=== PATIENT | female | born 1945 ===

== ENCOUNTER 2017-05-31 14:04 | Observation (INO) | payer OTHER ==
[2017-05-31 14:04] VITALS: BMI 34.7
[~2017-05-31 14:04] MED LIST: Perflutren Lipid Microsphere 1.5 ML SUS IV ONE
--- NOTE | 2017-05-31 14:25 | C.PDOC ---
History Of Present Illness 72 yr old female sent to ER by the clinic, for evaluation of chest pain which started today. Patient has history if CAD, HTN, possibly associated with exertion. Otherwise patient denies fever, chills, palpitations, nausea,vomiting , weakness or numbness. REFERRED FROM CLINIC. CP SINCE TODAY. HO CAD HTN, ?ASSOC W EXERTION EXAM NEG Time Seen by Provider: 05/31/17 14:22 Chief Complaint (Nursing): Chest Pain History Per: Patient History/Exam Limitations: no limitations Onset/Duration Of Symptoms: Sudden Onset Current Symptoms Are (Timing): Still Present Past Medical History Reviewed: Historical Data, Nursing Documentation, Vital Signs Vital Signs: Last Vital Signs Temp 97.5 F L 05/31/17 14:24 Pulse 63 05/31/17 14:50 Resp 21 05/31/17 14:50 BP 138/71 05/31/17 14:50 Pulse Ox 100 05/31/17 14:50 - Medical History PMH: Cardia Arrhythmia, CHF, Colonic Polyps, Deep Vein Thrombosis (RLE IN 2014) , HTN, Hypercholesterolemia, Peripheral Edema, Pulmonary Embolism - [place] Procedures PLICATION OF VENA CAVA (05/05/15) Family History: States: No Known Family Hx - Social History Hx Alcohol Use: No Hx Substance Use: No - Immunization History Hx Tetanus Toxoid Vaccination: No Hx Influenza Vaccination: No Hx Pneumococcal Vaccination: No Review Of Systems Except As Marked, All Systems Reviewed And Found Negative. Constitutional: Negative for: Fever, Chills Cardiovascular: Positive for: Chest Pain. Negative for: Palpitations Gastrointestinal: Negative for: Nausea, Vomiting Neurological: Negative for: Weakness, Numbness Physical Exam - Physical Exam Appears: Non-toxic, No Acute Distress Skin: Warm, Dry, No Rash Head: Atraumatic, Normacephalic Oral Mucosa: Moist Chest: Symmetrical, No Tenderness Cardiovascular: Rhythm Regular, No Murmur Respiratory: Normal Breath Sounds, No Rales, No Rhonchi, No Stridor, No Wheezing Extremity: Normal ROM, No Swelling Neurological/Psych: Oriented x3, Normal Speech, Normal Motor ED Course And Treatment - Laboratory Results Result Diagrams: 05/31/17 15:00 05/31/17 15:00 ECG: Interpreted By Me ECG Rhythm: Sinus Bradycardia ECG Interpretation: No Changes From Prior (2015) Rate From EC (BPM) Pulse Ox Interpretation: Normal - Other Rad CXR X-Ray: Viewed By Me, Read By Radiologist Interpretation: PROCEDURE: CHEST RADIOGRAPH, 1 VIEW. HISTORY: chest pain. COMPARISON: 06/17/2015. FINDINGS: LUNGS: Current lung volumes increased compared to before. No interval consolidation. PLEURA: The prior bibasilar pleural effusions have cleared. No pneumothorax. CARDIOVASCULAR: The pulmonary vasculature appears chronically mildly congested. Cardiomegaly renoted. 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 VISUALIZED UPPER ABDOMEN: Normal. OTHER FINDINGS: None. IMPRESSION: Interval clearance of the bibasilar pleural effusions. No interval pathology suggested - Physician Consult Information Time Consulting Physician Contacted: 15:51 Physician Contacted: Beau Concepcion Medical Decision Making Medical Decision Making: PLAN: * CXR * EKG * Troponin * CBC * CMP * Aspirin PO * Tylenol PO * Nitroglycerin TOP Disposition Counseled Patient/Family Regarding: Studies Performed, Diagnosis - Disposition Disposition: HOSPITALIZED Disposition Time: 15:51 Condition: STABLE Forms: [facility] (Nicaraguan) - POA Present On Arrival: Poor Glycemic Control - Clinical Impression Clinical Impression: Chest pain - Scribe Statement The provider has reviewed the documentation as recorded by the Scribe Karolina Arreaga Provider Attestation: All medical record entries made by the Scribe were at my direction and personally dictated by me. I have reviewed the chart and agree that the record accurately reflects my personal performance of the history, physical exam, medical decision making, and the department course for this patient. I have also personally directed, reviewed, and agree with the discharge instructions and disposition. Decision To Admit - Pt Status Changed To: Hospital Disposition Of: Observation - . Bed Request Type: Telemetry Admitting Physician: Beau Concepcion Patient Diagnosis: Chest pain
[2017-05-31] MEDS ORDERED: Nitroglycerin 2% Ointment Foilpak UD TOP STA (14:28)
[2017-05-31] MEDS ORDERED: Aspirin 325 mg EC Tablets PO STA (14:28)
--- NOTE | 2017-05-31 14:46 | RAD ---
PROCEDURE: CHEST RADIOGRAPH, 1 VIEW HISTORY: chest pain COMPARISON: 06/17/2015 FINDINGS: LUNGS: Current lung volumes increased compared to before No interval consolidation PLEURA: The prior bibasilar pleural effusions have cleared. No pneumothorax CARDIOVASCULAR: The pulmonary vasculature appears chronically mildly congested. 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 OTHER FINDINGS: None. IMPRESSION: Interval clearance of the bibasilar pleural effusions No interval pathology suggested
[2017-05-31] MEDS ORDERED: Aspirin 325 mg EC Tablets PO ONE (14:47)
[2017-05-31] MEDS ORDERED: Nitroglycerin 2% Ointment Foilpak UD TOP ONE (14:47)
[2017-05-31 15:05] LABS: BASO # 0.1 K/uL (0.0-0.2); BASO % 0.8 % (0.0-2.0); EOS # 0.2 K/uL (0.0-0.7); EOS % 2.5 % (0.0-4.0); HEMATOCRIT 36.6 % (34.0-47.0); LYMPH # 2.6 K/uL (1.0-4.3); LYMPH % 41.3 % (20.0-40.0); MEAN CORPUSCULAR HEMOGLOBIN 27.4 pg (27.0-31.0); MEAN CORPUSCULAR HGB CONC 32.6 g/dL (33.0-37.0); MEAN PLATELET VOLUME 8.2 fL (7.2-11.7); MONO # 0.5 K/uL (0.0-0.8); MONO % 7.5 % (0.0-10.0); NRBC % 0.2 % (0.0-2.0); RED CELL DISTRIBUTION WIDTH 15.3 % (11.5-14.5); WHITE BLOOD COUNT 6.3 K/uL (4.8-10.8)
[2017-05-31 15:12] LABS: POTASSIUM 4.6 mmol/L (3.6-5.2)
[2017-05-31 15:14] LABS: BILIRUBIN,TOTAL 0.7 mg/dL (0.2-1.3)
[2017-05-31 15:15] LABS: ALB/GLOB RATIO 1.3 (1.0-2.1); CALCIUM 9.1 mg/dl (8.6-10.4); TOTAL PROTEIN 7.6 g/dL (6.3-8.3)
[2017-05-31 15:37] LABS: TROPONIN I 0.014 ng/mL (0.00-0.120)
--- NOTE | 2017-05-31 16:06 | CP.PCM.HP ---
History of Present Illness - History of Present Illness History of Present Illness: Internal Medicine History and Physical for Dr. Concepcion 72F presents with chest pain. Patient states the chest pain began at 9am in the morning. Patient states the pain lasted for 15 minutes. Patient has had chest pain like this in the past. Patient denies headaches, dizziness, difficulties urinating, problems with bowel movements, numbness, paresthesias. Patient admits to shortness of breath, leg edema. Patient went to clinic and was sent to the emergency room.. Patient has a past medical history of diabetes, DVT, PE (2014), IVC filter placement in 2014, HTN, colonic polyps 2015, CHF with EF 15-20%, Cardiomegaly, Diabetes. Patient states she was taken off of metformin recently because of worsening kidney function. Patient was unable to urinate. Kidney function has returned back to baseline. PMH: diabetes, DVT, PE (2014), IVC filter placement in 2014,HTN, colonic polyps 2015, CHF with EF 15-20%, Cardiomegaly PSH: IVC filter 2014 Social history: patient denies smoking, drinking alcohol and illicit drugs. FHx: brother of [place] and HTN, family history of diabetes PMD: patient goes to clinic CXR: bibasilar pleural effusions Present on Admission - Present on Admission Any Indicators Present on Admission: Yes History of DVT/PE: Yes History of Uncontrolled Diabetes: Yes Urinary Catheter: No Decubitus Ulcer Present: No Past Patient History - Infectious Disease Hx of Infectious Diseases: None - Past Medical History & Family History Past Medical History?: Yes - Past Social History Smoking Status: Never Smoked - CARDIAC Hx Cardia Arrhythmia: Yes Hx Congestive Heart Failure: Yes Hx Hypercholesterolemia: Yes Hx Hypertension: Yes Hx Peripheral Edema: Yes - PULMONARY Hx Pulmonary Embolism: Yes - NEUROLOGICAL Hx Neurological Disorder: No - HEENT Hx HEENT Problems: No - RENAL Hx Chronic Kidney Disease: No - ENDOCRINE/METABOLIC Hx Endocrine Disorders: Yes Hx Diabetes Mellitus Type 2: Yes - HEMATOLOGICAL/ONCOLOGICAL Hx Blood Disorders: No - INTEGUMENTARY Hx Dermatological Problems: No - MUSCULOSKELETAL/RHEUMATOLOGICAL Hx Musculoskeletal Disorders: No - GASTROINTESTINAL Hx Gastrointestinal Disorders: Yes Hx Hemorrhoids: Yes - GENITOURINARY/GYNECOLOGICAL Hx Genitourinary Disorders: No - PSYCHIATRIC Hx Substance Use: No - SURGICAL HISTORY Hx Surgeries: Yes Other/Comment: THROAT POLYP, NECK SX - ANESTHESIA Hx Anesthesia: Yes Hx Anesthesia Reactions: No Hx Malignant Hyperthermia: No Meds Allergies/Adverse Reactions: Allergies Allergy/AdvReac Type Severity Reaction Status Date / Time No Known Allergies Allergy Verified 07/03/16 12:27 Physical Exam - Constitutional Appears: Non-toxic, No Acute Distress - Head Exam Head Exam: NORMAL INSPECTION - Eye Exam Eye Exam: EOMI, Normal appearance - ENT Exam ENT Exam: Mucous Membranes Moist - Respiratory Exam Respiratory Exam: NORMAL BREATHING PATTERN. absent: Accessory Muscle Use, Rales , Wheezes, Respiratory Distress - Cardiovascular Exam Cardiovascular Exam: Bradycardia, +S1, +S2. absent: Tachycardia - GI/Abdominal Exam GI & Abdominal Exam: Soft. absent: Firm, Guarding, Mass, Pulsatile Mass, Tenderness - Extremities Exam Extremities exam: Positive for: full ROM, pedal edema Additional comments: 1+ pedal edema - Neurological Exam Neurological exam: Alert, Oriented x3 - Psychiatric Exam Psychiatric exam: Normal Affect, Normal Mood - Skin Skin Exam: Dry, Intact, Normal Color, Warm Results - Vital Signs Recent Vital Signs: Last Vital Signs Temp 97.5 F L 05/31/17 14:24 Pulse 63 05/31/17 14:50 Resp 21 05/31/17 14:50 BP 138/71 05/31/17 14:50 Pulse Ox 100 05/31/17 14:50 - Labs Result Diagrams: 05/31/17 15:00 05/31/17 15:00 Labs: Laboratory Results - last 24 hr 05/31/17 05/31/17 15:00 15:00 WBC 6.3 RBC 4.35 Hgb 11.9 Hct 36.6 MCV 84.0 MCH 27.4 MCHC 32.6 L RDW 15.3 H Plt Count 259 MPV 8.2 Neut % (Auto) 47.9 L Lymph % (Auto) 41.3 H Walsh % (Auto) 7.5 Eos % (Auto) 2.5 Baso % (Auto) 0.8 Neut # 3.0 Lymph # 2.6 Walsh # 0.5 Eos # 0.2 Baso # 0.1 Sodium 142 Potassium 4.6 Chloride 103 Carbon Dioxide 23 Anion Gap 20 BUN 26 H Creatinine 1.2 Est GFR ( Amer) 54 Est GFR (Non-Af Amer) 44 Random Glucose 161 H Calcium 9.1 Total Bilirubin 0.7 AST 30 ALT 29 Alkaline Phosphatase 50 Troponin I 0.0140 Total Protein 7.6 Albumin 4.3 Globulin 3.4 Albumin/Globulin Ratio 1.3 Assessment & Plan - Assessment and Plan (Free Text) Assessment: 72 F with chest pain PMH: HTN, CHF EF 15-20%, DM Plan: chest pain, r/o ACS ANGELA panel Q6H f/u EKG aspirin 325mg stat dose Aspirin 81mg POQD crestor 20mg f/u lipid panel f/u Cardiology Consult: Dr. Browne Leg edema IV Lasix 20mg IVPB Q12H CHF EF 15-20%, SOB with walking, patient does not run f/u Echo DM: f/u Hemoglobin A1c diet Carbohydrate consistent diet diabetes counseling fingerstick glucose q6h Avelina Moses DO PGY1 - Date & Time Date: 05/31/17 Time: 17:00
[2017-05-31 21:03] LABS: THYROID STIMULATING HORMONE 2.07 mIU/L (0.46-4.68)
[2017-05-31 21:13] LABS: INR 2.1
[2017-06-01] MEDS ORDERED: Aluminum Hydroxide/Magnesium Hydroxide Susp (30 mL) PO ONE (02:03)
[2017-06-01 03:39] LABS: BASO % 0.5 % (0.0-2.0); EOS # 0.2 K/uL (0.0-0.7); EOS % 2.5 % (0.0-4.0); HEMATOCRIT 34.3 % (34.0-47.0); LYMPH % 42.7 % (20.0-40.0); MEAN CELL VOLUME 83.8 fL (81.0-99.0); MEAN CORPUSCULAR HEMOGLOBIN 26.8 pg (27.0-31.0); MEAN PLATELET VOLUME 8.5 fL (7.2-11.7); MONO # 0.6 K/uL (0.0-0.8); MONO % 8.6 % (0.0-10.0); RED CELL DISTRIBUTION WIDTH 14.6 % (11.5-14.5)
[2017-06-01 03:42] LABS: INR 2.3
[2017-06-01 03:50] LABS: POTASSIUM 4.2 mmol/L (3.6-5.2)
[2017-06-01 03:52] LABS: ALB/GLOB RATIO 1.2 (1.0-2.1); BILIRUBIN,TOTAL 0.4 mg/dL (0.2-1.3); TOTAL PROTEIN 7.1 g/dL (6.3-8.3)
[2017-06-01 03:53] LABS: CALCIUM 8.7 mg/dl (8.6-10.4)
--- NOTE | 2017-06-01 07:44 | CP.PCM.PN ---
Subjective - Date & Time of Evaluation Date of Evaluation: 06/01/17 Time of Evaluation: 07:30 - Subjective Subjective: PGY1 Medicine Note for Dr. Concepcion Patient seen and examined this morning at bedside. Patient states her chest pain has complete resolved since yesterday. She is still experiencing some left arm numbness/pain. She states she has had this numbness/pain in the past. She has no complaints at this time. Denies f/c, n/v, d/c, sob, cp or headache. Objective - Vital Signs/Intake and Output Vital Signs (last 24 hours): Temp Pulse Resp BP Pulse Ox 98.4 F 58 L 20 122/76 96 06/01/17 04:34 06/01/17 06:50 06/01/17 04:34 06/01/17 04:34 06/01/17 04:34 Intake and Output: 06/01/17 06/01/17 06:59 18:59 Intake Total 510 Balance 510 - Medications Medications: Current Medications Amlodipine Besylate (Norvasc) 5 mg PO DAILY BEAU Aspirin (Ecotrin) 81 mg PO DAILY BEAU Carvedilol (Coreg) 12.5 mg PO BID BEAU Furosemide (Lasix) 20 mg IVP BID BEAU Influenza Virus Vaccine (Afluria) 45 mcg IM .ONCE ONE Stop: 06/03/17 10:01 Pantoprazole Sodium (Protonix Ec Tab) 40 mg PO DAILY BEAU Pneumococcal Polyvalent Vaccine (Pneumovax 23 Vaccine) 0.5 ml IM .ONCE ONE Stop: 06/03/17 10:01 Rosuvastatin Calcium (Crestor) 20 mg PO HS BEAU Last Admin: 05/31/17 21:17 Dose: 20 mg - Labs Labs: 06/01/17 03:36 06/01/17 03:36 PT 26.1 SECONDS (9.7-12.2) H 06/01/17 03:36 INR 2.3 06/01/17 03:36 APTT 36 SECONDS (21-34) H 05/31/17 21:00 - Constitutional Appears: Non-toxic, No Acute Distress - Head Exam Head Exam: ATRAUMATIC, NORMOCEPHALIC - Eye Exam Eye Exam: EOMI, Normal appearance - ENT Exam ENT Exam: Mucous Membranes Moist - Respiratory Exam Respiratory Exam: Clear to Ausculation Bilateral, NORMAL BREATHING PATTERN. absent: Accessory Muscle Use, Rales, Rhonchi, Wheezes, Respiratory Distress - Cardiovascular Exam Cardiovascular Exam: REGULAR RHYTHM, +S1, +S2 - GI/Abdominal Exam GI & Abdominal Exam: Soft, Normal Bowel Sounds. absent: Distended, Firm, Guarding, Rigid, Tenderness - Extremities Exam Extremities Exam: absent: Calf Tenderness, Pedal Edema - Neurological Exam Neurological Exam: Alert, Awake, Oriented x3 - Psychiatric Exam Psychiatric exam: Normal Affect, Normal Mood - Skin Skin Exam: Dry, Normal Color, Warm Assessment and Plan - Assessment and Plan (Free Text) Assessment: Chest Pain, r/o ACS ANGELA negative x 3 Aspirin 81mg POQD crestor 20mg lipid panel Trigly 163, Chol 156, LDL 82, HDL 44 TSH 2.07 Cardiology Consult: Dr. Browne - f/u recs Patient is to have a cardiac stress test tomorrow Aspirin 81mg PO daily Amlodipine 5mg PO daily Carvedilol 12.5mg PO BID Lasix 20mg IVP BID Crestor 20mg PO HS Warfarin 4mg PO daily Leg edema IV Lasix 20mg IVPB Q12H CHF Prior EF 15-20%, SOB with walking, patient does not run ECHO 06/01/17- LV is moderately dilated. Borderline LVH. EF ~ 50%. Global hypokinesis of LV. No thrombus in LV. Mild to moderate AR. Trace to mild MR. NO pericardial effusion. DM: HgA1c 8.7 diet Carbohydrate consistent diet diabetes counseling Prophylactic Care Protonix 40mg PO daily NO additional DVT - pt on anticoagulation with Warfarin Case discussed with Dr. Carlene Pena Saurabh
[2017-06-01] MEDS ORDERED: Perflutren Lipid Microsphere 1.5 ML SUS IV ONE (10:18)
[2017-06-01] MEDS: Pantoprazole 40 mg EC Tab PO SCH (11:38)
--- NOTE | 2017-06-01 12:30 | CP.PCM.CON ---
<SHAILA BARBOSA - Last Filed: 06/01/17 20:23> History of Present Illness - History of Present Illness History of Present Illness: Shaila Barbosa DO PGY1 - Cardiology Consult Note for Dr. 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 Pain started yesterday at 9 AM while walking after having breakfast; mid chest retrosternal, nonradiating; squeezing in character; very intense initially, then improved somewhat on its own; associated with mild dyspnea; not associated with CAR, diaphoresis; not worsened with activity; no remitting factors. After coming to ER, pain is now resolved. She has had this pain in the past, resolves spontaneously. Currently, she denies any CP, SOB, diaphoresis, palpitation, N/V/ D/C, abdominal pain, cough, dizziness, CAR. 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, CHF (LVEF 15-20% in 2016), colonic polyps PSH: IVC filter placement 2014 Soc: Denies tobacco, alcohol, and illicits FHx: One brother after [place] at 65, another brother diet from CVA at 58 Meds: Amlodipine, coreg, Lasix, Lisinopril, Metformin, Simvastatin, coumadin ( per EMR) ALL: NKDA ROS: As in HPI Past Patient History - Infectious Disease Hx of Infectious Diseases: None - Past Medical History & Family History Past Medical History?: Yes - Past Social History Smoking Status: Never Smoked - CARDIAC Hx Cardiac Disorders: Yes Hx Cardia Arrhythmia: Yes Hx Congestive Heart Failure: Yes Hx Hypercholesterolemia: Yes Hx Hypertension: Yes Hx Peripheral Edema: Yes - PULMONARY Hx Respiratory Disorders: Yes Hx Pulmonary Embolism: Yes - NEUROLOGICAL Hx Neurological Disorder: No - HEENT Hx HEENT Problems: No - RENAL Hx Chronic Kidney Disease: No - ENDOCRINE/METABOLIC Hx Endocrine Disorders: Yes Hx Diabetes Mellitus Type 2: Yes - HEMATOLOGICAL/ONCOLOGICAL Hx Blood Disorders: No - INTEGUMENTARY Hx Dermatological Problems: No - MUSCULOSKELETAL/RHEUMATOLOGICAL Hx Musculoskeletal Disorders: No Hx Falls: No - GASTROINTESTINAL Hx Gastrointestinal Disorders: Yes Hx Hemorrhoids: Yes - GENITOURINARY/GYNECOLOGICAL Hx Genitourinary Disorders: No - PSYCHIATRIC Hx Psychophysiologic Disorder: No Hx Substance Use: No - SURGICAL HISTORY Hx Surgeries: Yes Other/Comment: THROAT POLYP, NECK SX - ANESTHESIA Hx Anesthesia: Yes Hx Anesthesia Reactions: No Hx Malignant Hyperthermia: No Meds Allergies/Adverse Reactions: Allergies Allergy/AdvReac Type Severity Reaction Status Date / Time No Known Allergies Allergy Verified 07/03/16 12:27 - Medications Medications: Current Medications Amlodipine Besylate (Norvasc) 5 mg PO DAILY [facility] Last Admin: 06/01/17 11:38 Dose: 5 mg Aspirin (Ecotrin) 81 mg PO DAILY [facility] Last Admin: 06/01/17 11:38 Dose: 81 mg Carvedilol (Coreg) 12.5 mg PO BID [facility] Last Admin: 06/01/17 11:38 Dose: 12.5 mg Furosemide (Lasix) 20 mg IVP BID [facility] Last Admin: 06/01/17 11:37 Dose: 20 mg Influenza Virus Vaccine (Afluria) 45 mcg IM .ONCE ONE Stop: 06/03/17 10:01 Pantoprazole Sodium (Protonix Ec Tab) 40 mg PO DAILY [facility] Last Admin: 06/01/17 11:38 Dose: 40 mg Pneumococcal Polyvalent Vaccine (Pneumovax 23 Vaccine) 0.5 ml IM .ONCE ONE Stop: 06/03/17 10:01 Rosuvastatin Calcium (Crestor) 20 mg PO HS [facility] Last Admin: 05/31/17 21:17 Dose: 20 mg Physical Exam - Constitutional Appears: Non-toxic, No Acute Distress - Head Exam Head Exam: ATRAUMATIC, NORMOCEPHALIC - Eye Exam Eye Exam: EOMI, Normal appearance - ENT Exam ENT Exam: Mucous Membranes Moist - Neck Exam Neck exam: Positive for: Full Rom, Normal Inspection - Respiratory Exam Respiratory Exam: Clear to Auscultation Bilateral. absent: Rales, Rhonchi, Wheezes - Cardiovascular Exam Cardiovascular Exam: RRR, +S1, +S2 - GI/Abdominal Exam GI & Abdominal Exam: Normal Bowel Sounds, Soft. absent: Tenderness - Extremities Exam Extremities exam: Positive for: pedal edema (1+ to mid heller) - Neurological Exam Neurological exam: Alert, Normal Gait, Oriented x3 - Psychiatric Exam Psychiatric exam: Normal Affect, Normal Mood - Skin Skin Exam: Dry, Intact Results - Vital Signs Recent Vital Signs: Last Vital Signs Temp 98.5 F 06/01/17 07:50 Pulse 63 06/01/17 07:50 Resp 20 06/01/17 07:50 BP 151/72 H 06/01/17 11:38 Pulse Ox 97 06/01/17 07:50 - Labs Result Diagrams: 06/01/17 03:36 06/01/17 03:36 Labs: Laboratory Results - last 24 hr 05/31/17 05/31/17 05/31/17 15:00 15:00 16:55 WBC 6.3 RBC 4.35 Hgb 11.9 Hct 36.6 MCV 84.0 MCH 27.4 MCHC 32.6 L RDW 15.3 H Plt Count 259 MPV 8.2 Neut % (Auto) 47.9 L Lymph % (Auto) 41.3 H Ellsworth % (Auto) 7.5 Eos % (Auto) 2.5 Baso % (Auto) 0.8 Neut # 3.0 Lymph # 2.6 Ellsworth # 0.5 Eos # 0.2 Baso # 0.1 PT INR APTT Sodium 142 Potassium 4.6 Chloride 103 Carbon Dioxide 23 Anion Gap 20 BUN 26 H Creatinine 1.2 Est GFR ( Amer) 54 Est GFR (Non-Af Amer) 44 POC Glucose (mg/dL) 172 H Random Glucose 161 H Hemoglobin A1c Calcium 9.1 Total Bilirubin 0.7 AST 30 ALT 29 Alkaline Phosphatase 50 Total Creatine Kinase CK-MB (Mass) Troponin I 0.0140 Troponin I, Quant NT-Pro-B Natriuret Pep Total Protein 7.6 Albumin 4.3 Globulin 3.4 Albumin/Globulin Ratio 1.3 Triglycerides Cholesterol LDL Cholesterol Direct HDL Cholesterol TSH 3rd Generation 05/31/17 05/31/17 05/31/17 20:14 21:00 21:00 WBC RBC Hgb Hct MCV MCH MCHC RDW Plt Count MPV Neut % (Auto) Lymph % (Auto) Ellsworth % (Auto) Eos % (Auto) Baso % (Auto) Neut # Lymph # Ellsworth # Eos # Baso # PT 24.5 H INR 2.1 APTT 36 H Sodium Potassium Chloride Carbon Dioxide Anion Gap BUN Creatinine Est GFR ( Amer) Est GFR (Non-Af Amer) POC Glucose (mg/dL) Random Glucose Hemoglobin A1c Calcium Total Bilirubin AST ALT Alkaline Phosphatase Total Creatine Kinase 162 H CK-MB (Mass) 1.32 Troponin I Troponin I, Quant 0.0160 NT-Pro-B Natriuret Pep 240 Total Protein Albumin Globulin Albumin/Globulin Ratio Triglycerides Cholesterol LDL Cholesterol Direct HDL Cholesterol TSH 3rd Generation 2.07 05/31/17 06/01/17 06/01/17 21:51 03:36 03:36 WBC 7.0 RBC 4.09 Hgb 11.0 Hct 34.3 MCV 83.8 MCH 26.8 L MCHC 32.0 L RDW 14.6 H Plt Count 258 MPV 8.5 Neut % (Auto) 45.7 L Lymph % (Auto) 42.7 H Ellsworth % (Auto) 8.6 Eos % (Auto) 2.5 Baso % (Auto) 0.5 Neut # 3.2 Lymph # 3.0 Ellsworth # 0.6 Eos # 0.2 Baso # 0.0 PT 26.1 H INR 2.3 APTT Sodium Potassium Chloride Carbon Dioxide Anion Gap BUN Creatinine Est GFR ( Amer) Est GFR (Non-Af Amer) POC Glucose (mg/dL) 159 H Random Glucose Hemoglobin A1c Calcium Total Bilirubin AST ALT Alkaline Phosphatase Total Creatine Kinase CK-MB (Mass) Troponin I Troponin I, Quant NT-Pro-B Natriuret Pep Total Protein Albumin Globulin Albumin/Globulin Ratio Triglycerides Cholesterol LDL Cholesterol Direct HDL Cholesterol TSH 3rd Generation 06/01/17 06/01/17 06/01/17 03:36 03:36 06:31 WBC RBC Hgb Hct MCV MCH MCHC RDW Plt Count MPV Neut % (Auto) Lymph % (Auto) Ellsworth % (Auto) Eos % (Auto) Baso % (Auto) Neut # Lymph # Ellsworth # Eos # Baso # PT INR APTT Sodium 141 Potassium 4.2 Chloride 105 Carbon Dioxide 21 L Anion Gap 19 BUN 29 H Creatinine 1.3 H Est GFR ( Amer) 49 Est GFR (Non-Af Amer) 40 POC Glucose (mg/dL) 144 H Random Glucose 157 H Hemoglobin A1c 8.7 H D Calcium 8.7 Total Bilirubin 0.4 AST 22 ALT 26 Alkaline Phosphatase 47 Total Creatine Kinase 142 H CK-MB (Mass) 1.09 Troponin I Troponin I, Quant 0.0160 NT-Pro-B Natriuret Pep Total Protein 7.1 Albumin 3.9 Globulin 3.2 Albumin/Globulin Ratio 1.2 Triglycerides 163 H Cholesterol 156 LDL Cholesterol Direct 82 HDL Cholesterol 44 TSH 3rd Generation 06/01/17 11:46 WBC RBC Hgb Hct MCV MCH MCHC RDW Plt Count MPV Neut % (Auto) Lymph % (Auto) Ellsworth % (Auto) Eos % (Auto) Baso % (Auto) Neut # Lymph # Ellsworth # Eos # Baso # PT INR APTT Sodium Potassium Chloride Carbon Dioxide Anion Gap BUN Creatinine Est GFR ( Amer) Est GFR (Non-Af Amer) POC Glucose (mg/dL) 158 H Random Glucose Hemoglobin A1c Calcium Total Bilirubin AST ALT Alkaline Phosphatase Total Creatine Kinase CK-MB (Mass) Troponin I Troponin I, Quant NT-Pro-B Natriuret Pep Total Protein Albumin Globulin Albumin/Globulin Ratio Triglycerides Cholesterol LDL Cholesterol Direct HDL Cholesterol TSH 3rd Generation Assessment & Plan - Assessment and Plan (Free Text) Assessment: 72 yo F with extensive cardiac and coagulopathic history presents complaining of chest pain Plan: 1. Chest pain - Atypical chest pain in an elderly diabetic female with extensive past medical history, concerning for ACS - Patient has history of DVT/PE, but is therapeutic on coumadin and has IVF filter in place, so unlikely to be PE - EKG shows no signs of acute ischemia; Trops indeterminate, but plateaued x3 - Echo done, images pending - Patient had not had cardiac workup in the past, will require inpatient stress testing, to be done tomorrow - Continue ASA, statin ,coumadin 2. h/o CHF LVEF 15-20% - Appears stable and compensated at this time - Last echo done 2014 - New echo compelete, images pending - Continue ASA, BB, Lasix 3. HTN - BP currently stable - continue BB, CCB, Lasix Patient seen, discussed, and reviewed with attending <Jesu Browne - Last Filed: 06/02/17 02:06> Meds - Medications Medications: Current Medications Amlodipine Besylate (Norvasc) 5 mg PO DAILY [facility] Last Admin: 06/01/17 11:38 Dose: 5 mg Aspirin (Ecotrin) 81 mg PO DAILY [facility] Last Admin: 06/01/17 11:38 Dose: 81 mg Carvedilol (Coreg) 12.5 mg PO BID [facility] Last Admin: 06/01/17 18:30 Dose: 12.5 mg Furosemide (Lasix) 20 mg IVP BID [facility] Last Admin: 06/01/17 18:30 Dose: 20 mg Influenza Virus Vaccine (Afluria) 45 mcg IM .ONCE ONE Stop: 06/03/17 10:01 Pantoprazole Sodium (Protonix Ec Tab) 40 mg PO DAILY [facility] Last Admin: 06/01/17 11:38 Dose: 40 mg Pneumococcal Polyvalent Vaccine (Pneumovax 23 Vaccine) 0.5 ml IM .ONCE ONE Stop: 06/03/17 10:01 Rosuvastatin Calcium (Crestor) 20 mg PO HS [facility] Last Admin: 06/01/17 22:14 Dose: 20 mg Results - Vital Signs Recent Vital Signs: Last Vital Signs Temp 98 F 06/01/17 23:07 Pulse 54 L 06/01/17 23:54 Resp 20 06/01/17 23:07 BP 94/60 L 06/01/17 23:07 Pulse Ox 96 06/01/17 23:07 - Labs Result Diagrams: 06/01/17 03:36 06/01/17 03:36 Labs: Laboratory Results - last 24 hr 06/01/17 06/01/17 06/01/17 03:36 03:36 03:36 WBC 7.0 RBC 4.09 Hgb 11.0 Hct 34.3 MCV 83.8 MCH 26.8 L MCHC 32.0 L RDW 14.6 H Plt Count 258 MPV 8.5 Neut % (Auto) 45.7 L Lymph % (Auto) 42.7 H Ellsworth % (Auto) 8.6 Eos % (Auto) 2.5 Baso % (Auto) 0.5 Neut # 3.2 Lymph # 3.0 Ellsworth # 0.6 Eos # 0.2 Baso # 0.0 PT 26.1 H INR 2.3 Sodium 141 Potassium 4.2 Chloride 105 Carbon Dioxide 21 L Anion Gap 19 BUN 29 H Creatinine 1.3 H Est GFR ( Amer) 49 Est GFR (Non-Af Amer) 40 POC Glucose (mg/dL) Random Glucose 157 H Hemoglobin A1c Calcium 8.7 Total Bilirubin 0.4 AST 22 ALT 26 Alkaline Phosphatase 47 Total Creatine Kinase 142 H CK-MB (Mass) 1.09 Troponin I, Quant 0.0160 Total Protein 7.1 Albumin 3.9 Globulin 3.2 Albumin/Globulin Ratio 1.2 Triglycerides 163 H Cholesterol 156 LDL Cholesterol Direct 82 HDL Cholesterol 44 06/01/17 06/01/17 06/01/17 03:36 06:31 11:46 WBC RBC Hgb Hct MCV MCH MCHC RDW Plt Count MPV Neut % (Auto) Lymph % (Auto) Ell[place] % (Auto) Eos % (Auto) Baso % (Auto) Neut # Lymph # Ellsworth # Eos # Baso # PT INR Sodium Potassium Chloride Carbon Dioxide Anion Gap BUN Creatinine Est GFR ( Amer) Est GFR (Non-Af Amer) POC Glucose (mg/dL) 144 H 158 H Random Glucose Hemoglobin A1c 8.7 H D Calcium Total Bilirubin AST ALT Alkaline Phosphatase Total Creatine Kinase CK-MB (Mass) Troponin I, Quant Total Protein Albumin Globulin Albumin/Globulin Ratio Triglycerides Cholesterol LDL Cholesterol Direct HDL Cholesterol Attending/Attestation - Attestation I have personally seen and examined this patient.: Yes I have fully participated in the care of the patient.: Yes I have reviewed all pertinent clinical information: Yes Notes (Text): 06/02/17 02:05 72 year old female with multiple CRF presenting with CP last echo showed EF of 15-20% repeat Echo plan for stress test meds as detailed below
--- NOTE | 2017-06-01 13:58 | CARD ---
APPROVED REPORT EXAM: Two-dimensional and M-mode echocardiogram with Doppler and color Doppler. Other Information Quality : GoodRhythm : INDICATION Chest Pain 2D DIMENSIONS IVSd0.8 (0.7-1.1cm)LVDd6.0 (3.9-5.9cm) PWd0.7 (0.7-1.1cm)LVDs4.7 (2.5-4.0cm) FS (%) 22.3 %LVEF (%)44.2 (>50%) M-Mode DIMENSIONS Left Atrium (MM)4.40 (2.5-4.0cm)IVSd1.05 (0.7-1.1cm) Aortic Root3.36 (2.2-3.7cm)LVDd6.40 (4.0-5.6cm) Aortic Cusp Exc.1.91 (1.5-2.0cm)PWd1.00 (0.7-1.1cm) FS (%) 32 %LVDs4.38 (2.0-3.8cm) LVEF (%)50 (>50%) Aortic Valve AI P 1/2 [id number] Mitral Valve MV E Lagbigdo89.3cm/sMV A Ogahuvjj95.6cm/sE/A ratio0.8 TDI E/Lateral E'0.0E/Medial E'0.0 Tricuspid Valve TR Peak [id number]/sTR Peak Gr.30doEpAHQR25vxOv LEFT VENTRICLE The Left Ventricle is moderately dilated. There is borderline to mild concentric left ventricular hypertrophy. The systolic function is mildly impaired. Estimated Ejection Fraction - 50%. There is global hypokinesis of the left ventricle. Transmitral Doppler flow pattern is Grade I-abnormal relaxation pattern. No left ventricle thrombus noted on this contrast study. RIGHT VENTRICLE The right ventricle is normal size. The right ventricular systolic function is normal. ATRIA The left atrium is mildly dilated. The right atrium size is normal. AORTIC VALVE The aortic valve is mildly sclerotic. There is mild to moderate aortic regurgitation. There is no aortic valvular stenosis. MITRAL VALVE The mitral valve is normal in structure. Mitral regurgitation is trace to mild. TRICUSPID VALVE The tricuspid valve is normal in structure. There is mild tricuspid regurgitation. Right ventricular systolic pressure is estimated at 30 mmHg. PULMONIC VALVE The pulmonary valve is normal in structure. There is trace to mild pulmonic valvular regurgitation. GREAT VESSELS The aortic root is normal in size. The IVC is normal in size and collapses >50% with inspiration. PERICARDIAL EFFUSION There is no pericardial effusion. <Conclusion> The Left Ventricle is moderately dilated. There is borderline to mild concentric left ventricular hypertrophy. The left ventricular systolic function is mildly impaired. Estimated Ejection Fraction - 50%. There is global hypokinesis of the left ventricle. Transmitral Doppler flow pattern is Grade I-abnormal relaxation pattern. No left ventricle thrombus noted on this contrast study. The right ventricular systolic function is normal. There is mild to moderate aortic regurgitation. Mitral regurgitation is trace to mild. There is no pericardial effusion.
[2017-06-02 07:30] LABS: BASO % 0.6 % (0.0-2.0); EOS # 0.2 K/uL (0.0-0.7); EOS % 2.9 % (0.0-4.0); HEMATOCRIT 36.7 % (34.0-47.0); LYMPH # 2.1 K/uL (1.0-4.3); LYMPH % 31.1 % (20.0-40.0); MEAN CELL VOLUME 83.4 fL (81.0-99.0); MEAN CORPUSCULAR HEMOGLOBIN 27.2 pg (27.0-31.0); MEAN CORPUSCULAR HGB CONC 32.6 g/dL (33.0-37.0); MEAN PLATELET VOLUME 8.5 fL (7.2-11.7); MONO # 0.6 K/uL (0.0-0.8); MONO % 9.1 % (0.0-10.0); RED CELL DISTRIBUTION WIDTH 14.7 % (11.5-14.5); WHITE BLOOD COUNT 6.9 K/uL (4.8-10.8)
[2017-06-02 07:50] LABS: POTASSIUM 4.2 mmol/L (3.6-5.2)
[2017-06-02 07:53] LABS: ALB/GLOB RATIO 1.3 (1.0-2.1); BILIRUBIN,TOTAL 0.7 mg/dL (0.2-1.3); CALCIUM 8.7 mg/dl (8.6-10.4); TOTAL PROTEIN 7.7 g/dL (6.3-8.3)
--- NOTE | 2017-06-02 07:54 | CP.PCM.PN ---
<Jean Wiley - Last Filed: 06/02/17 17:48> Subjective - Date & Time of Evaluation Date of Evaluation: 06/02/17 Time of Evaluation: 07:54 - Subjective Subjective: PGY1 Medicine Note for Dr. Jaycob Arevalo Patient seen and examined at bedside this morning. Patient has no complaints other than the pain/numbness in her left arm that is chronic. She denies f/c, n/ v, d/c, sob, cp, abd pain or headache. Patient is scheduled for a nuclear stress test later today with Dr. Browne. Objective - Vital Signs/Intake and Output Vital Signs (last 24 hours): Temp Pulse Resp BP Pulse Ox 98 F 69 20 94/60 L 96 06/01/17 23:07 06/02/17 03:49 06/01/17 23:07 06/01/17 23:07 06/01/17 23:07 Intake and Output: 06/02/17 06/02/17 06:59 18:59 Intake Total 480 Balance 480 - Medications Medications: Current Medications Amlodipine Besylate (Norvasc) 5 mg PO DAILY [facility] Last Admin: 06/01/17 11:38 Dose: 5 mg Aspirin (Ecotrin) 81 mg PO DAILY [facility] Last Admin: 06/01/17 11:38 Dose: 81 mg Carvedilol (Coreg) 12.5 mg PO BID [facility] Last Admin: 06/01/17 18:30 Dose: 12.5 mg Furosemide (Lasix) 20 mg IVP BID [facility] Last Admin: 06/01/17 18:30 Dose: 20 mg Influenza Virus Vaccine (Afluria) 45 mcg IM .ONCE ONE Stop: 06/03/17 10:01 Pantoprazole Sodium (Protonix Ec Tab) 40 mg PO DAILY [facility] Last Admin: 06/01/17 11:38 Dose: 40 mg Pneumococcal Polyvalent Vaccine (Pneumovax 23 Vaccine) 0.5 ml IM .ONCE ONE Stop: 06/03/17 10:01 Rosuvastatin Calcium (Crestor) 20 mg PO [facility] Last Admin: 06/01/17 22:14 Dose: 20 mg - Labs Labs: 06/02/17 07:09 06/02/17 07:09 PT 26.1 SECONDS (9.7-12.2) H 06/01/17 03:36 INR 2.3 06/01/17 03:36 APTT 36 SECONDS (21-34) H 05/31/17 21:00 - Constitutional Appears: Non-toxic, No Acute Distress - Head Exam Head Exam: ATRAUMATIC, NORMOCEPHALIC - Eye Exam Eye Exam: EOMI, Normal appearance - ENT Exam ENT Exam: Mucous Membranes Moist - Respiratory Exam Respiratory Exam: Clear to Ausculation Bilateral, NORMAL BREATHING PATTERN. absent: Accessory Muscle Use, Rales, Rhonchi, Wheezes, Respiratory Distress - Cardiovascular Exam Cardiovascular Exam: REGULAR RHYTHM, +S1, +S2 - GI/Abdominal Exam GI & Abdominal Exam: Soft, Normal Bowel Sounds. absent: Distended, Firm, Guarding, Rigid, Tenderness - Extremities Exam Extremities Exam: absent: Calf Tenderness, Pedal Edema - Neurological Exam Neurological Exam: Alert, Awake, Oriented x3 Neuro motor strength exam: Left Upper Extremity: 5, Right Upper Extremity: 5, Left Lower Extremity: 5, Right Lower Extremity: 5 - Psychiatric Exam Psychiatric exam: Normal Affect, Normal Mood - Skin Skin Exam: Dry, Intact, Normal Color, Warm Assessment and Plan - Assessment and Plan (Free Text) Assessment: Chest Pain, r/o ACS ANGELA negative x 3 Aspirin 81mg POQD crestor 20mg lipid panel Trigly 163, Chol 156, LDL 82, HDL 44 TSH 2.07 Cardiology Consult: Dr. Borwne - f/u recfernanda Pt underwent nuclear stress test today - awaiting report Aspirin 81mg PO daily Amlodipine 5mg PO daily - discontinued Carvedilol 12.5mg PO BID Lasix 20mg IVP BID Crestor 20mg PO HS Warfarin 4mg PO daily Started patient on Lisinopril 2.5mg PO daily The switch between lisinopril and amlodipine was completed due to the patient's hx of DM2. This switch was made, but is pending cardio approval. Leg edema IV Lasix 20mg IVPB Q12H CHF Prior EF 15-20%, SOB with walking, patient does not run ECHO 06/01/17- LV is moderately dilated. Borderline LVH. EF ~ 50%. Global hypokinesis of LV. No thrombus in LV. Mild to moderate AR. Trace to mild MR. NO pericardial effusion. DM HgA1c 8.7 diet Carbohydrate consistent diet diabetes counseling Started patient on Metformin 500mg PO AC (w/ breakfast) Prophylactic Care Protonix 40mg PO daily NO additional DVT - pt on anticoagulation with Warfarin DISPO: if stress test normal, plan to d/c home tomorrow morning Case discussed with Dr. Jaycob Wiley <Nguyễn Arevalo - Last Filed: 06/02/17 20:30> Objective - Vital Signs/Intake and Output Vital Signs (last 24 hours): Temp Pulse Resp BP Pulse Ox 98.1 F 66 18 118/64 97 06/02/17 16:00 06/02/17 16:00 06/02/17 16:00 06/02/17 18:18 06/02/17 16:00 - Medications Medications: Current Medications Aspirin (Ecotrin) 81 mg PO DAILY [facility] Last Admin: 06/02/17 09:30 Dose: Not Given Carvedilol (Coreg) 12.5 mg PO BID [facility] Last Admin: 06/02/17 18:18 Dose: 12.5 mg Furosemide (Lasix) 20 mg IVP BID [facility] Last Admin: 06/02/17 18:18 Dose: 20 mg Influenza Virus Vaccine (Afluria) 45 mcg IM .ONCE ONE Stop: 06/03/17 10:01 Lisinopril (Zestril) 2.5 mg PO DAILY [facility] Metformin HCl (Glucophage) 500 mg PO AC [facility] Pantoprazole Sodium (Protonix Ec Tab) 40 mg PO DAILY [facility] Last Admin: 06/02/17 11:32 Dose: Not Given Pneumococcal Polyvalent Vaccine (Pneumovax 23 Vaccine) 0.5 ml IM .ONCE ONE Stop: 06/03/17 10:01 Rosuvastatin Calcium (Crestor) 20 mg PO HS [facility] Last Admin: 06/01/17 22:14 Dose: 20 mg - Labs Labs: 06/02/17 07:09 06/02/17 07:09 PT 26.6 SECONDS (9.7-12.2) H 06/02/17 13:46 INR 2.3 06/02/17 13:46 APTT 36 SECONDS (21-34) H 05/31/17 21:00 Attending/Attestation - Attestation I have personally seen and examined this patient.: Yes I have fully participated in the care of the patient.: Yes I have reviewed all pertinent clinical information, including history, physical exam and plan: Yes Notes (Text): 06/02/17 20:20 Patient was seen and examined at 2:30 PM 06/02/17. Exam, assessment and plan were thoroughly gone over with the resident. Medicine Team please follow up with Cardiology Dr. Browne concerning the results of Stress Test. Also, please also speak with Dr. Browne, as patient should also be on an DAVIDE I considering history of CHF and DM 2. Patient also will likely need to be on Metformin 500 mg PO 1x/day with breakfast as HgBA1C is 8.7 (although blood glucose relatively under control). Nguyễn Arevalo D.O.
[2017-06-02] MEDS: Pantoprazole 40 mg EC Tab PO SCH (11:32)
[2017-06-02 14:20] LABS: INR 2.3
--- NOTE | 2017-06-02 18:45 | CARD ---
APPROVED REPORT Protocol: ANTWON Test Type: MYOVIEW STRESS Test Indications: CHEST PAIN Medications: LIST SCAN Medical History: CHEST PAIN Target HR: 150 bpm Resting ECG: normal Resting Heart Rate: 60 bpm Resting Blood Pressure: 122/70mmHg submaximum (85%): 128 bpm TEST SUMMARY [id number]. MANUALSTAGE [id number]/70.0. [id number]. POST EXERCISE Reason for Termination: Fatigue Target HR: No Max HR: 130 bpm 86% of Maximum Predicted HR: 150 bpm Exercise duration: 07:53 min:sec, 0 Stage Exercise capacity: 8.3METs Max Blood Pressure: 200/70mmHg Blood Pressure response to exercise: normal resting BP - appropriate response Heart Rate response to exercise: appropriate Chest Pain: No, none Angina index: 0 Arrhythmia: Yes, ventricular premature beats ST Change: No, none Deviation: 0 mm EXAM: Myocardial Perfusion REST/STRESS Imaging Protocol The imaging protocol used to acquire images was Rest Tc-99m/stress Tc-99m 1 day Rest Spect myocardial perfusion imaging was performed in supine position 54 minutes following the injection of 12.8 mCi of Tc-99 Myoview. Gated Stress Spect was performed 51 minutes after intravenous 32.6 mci Tc-99 Myoview injection. The images were gated to evaluate regional wall motion and calculate ventricular ejection fraction.Images were reconstructed using backfilter projection method in short horizontal and verticle long axis. Spect slices were generated. RESTING DATA IYR356.44nsIM1.30L/min ESV85.00mlMyocardial Dpfn935.00g Av. Heart Rate54.00bpm EF48.00% STRESS DATA LZL690.40ybXO9.00L/min ESV73.00mlMyocardial Fprn788.00g EF48.00% Regional WT score at stress:0.00 Regional WM score at stress:1.00 Summed WT score at stress:6.00 Av. Heart Rate73.00bpmSummed WM score at stress:13.00 Study quality was fair. Left Ventricular size was Normal at Rest and Stress. The rest and stress images show normal perfusion, normal contraction and thickening. LV Perf. Quant 17 Seg. SSS1.00 17 Seg. SRS0.00 17 Seg. SDS1.00 Stress Defect Extent (% LAD)0.00Rest Defect Extent (% LAD)0.00Rev. Defect Extent (% LAD)0.00 Stress Defect Extent (% LCX)0.00Rest Defect Extent (% LCX)0.00Rev. Defect Extent (% LCX)0.00 Stress Defect Extent (% RCA)0.00Rest Defect Extent (% RCA)0.00Rev. Defect Extent (% RCA)0.00 Stress Defect Extent (% FELICITY)0.00Rest Defect Extent (% FELICITY)0.00Rev. Defect Extent (% FELICITY)0.00 Other Information Quality:Fair Overall Exercise Capacity: Good IMPRESSION Normal Myocardial Perfusion exercise stress study Global LV Function: Mildy reduced Stress Test Summary: Normal LV Perfusion Summary: Equivocal Conclusion 1. Small sized mild intensity apical defect 2. Low normal LVEF 3. RECOMMENDATIONS: 4. Aggressive medical management and risk factor modification
--- NOTE | 2017-06-02 18:56 | CP.PCM.PN ---
Subjective - Date & Time of Evaluation Date of Evaluation: 06/02/17 Time of Evaluation: 18:54 - Subjective Subjective: s/p stress test today good functional capacity mild apical defect noted on stress images Objective - Vital Signs/Intake and Output Vital Signs (last 24 hours): Temp Pulse Resp BP Pulse Ox 98.1 F 66 18 118/64 97 06/02/17 16:00 06/02/17 16:00 06/02/17 16:00 06/02/17 18:18 06/02/17 16:00 Intake and Output: 06/02/17 06/02/17 06:59 18:59 Intake Total 480 Balance 480 - Medications Medications: Current Medications Aspirin (Ecotrin) 81 mg PO DAILY [facility] Last Admin: 06/02/17 09:30 Dose: Not Given Carvedilol (Coreg) 12.5 mg PO BID [facility] Last Admin: 06/02/17 18:18 Dose: 12.5 mg Furosemide (Lasix) 20 mg IVP BID [facility] Last Admin: 06/02/17 18:18 Dose: 20 mg Influenza Virus Vaccine (Afluria) 45 mcg IM .ONCE ONE Stop: 06/03/17 10:01 Lisinopril (Zestril) 2.5 mg PO DAILY [facility] Metformin HCl (Glucophage) 500 mg PO AC [facility] Pantoprazole Sodium (Protonix Ec Tab) 40 mg PO DAILY [facility] Last Admin: 06/02/17 11:32 Dose: Not Given Pneumococcal Polyvalent Vaccine (Pneumovax 23 Vaccine) 0.5 ml IM .ONCE ONE Stop: 06/03/17 10:01 Rosuvastatin Calcium (Crestor) 20 mg PO [facility] Last Admin: 06/01/17 22:14 Dose: 20 mg - Labs Labs: 06/02/17 07:09 06/02/17 07:09 PT 26.6 SECONDS (9.7-12.2) H 06/02/17 13:46 INR 2.3 06/02/17 13:46 APTT 36 SECONDS (21-34) H 05/31/17 21:00 - Constitutional Appears: Well - Head Exam Head Exam: ATRAUMATIC, NORMAL INSPECTION, NORMOCEPHALIC - Eye Exam Eye Exam: EOMI, Normal appearance, PERRL Pupil Exam: NORMAL ACCOMODATION, PERRL - ENT Exam ENT Exam: Mucous Membranes Moist, Normal Exam - Neck Exam Neck Exam: Full ROM, Normal Inspection. absent: Lymphadenopathy - Respiratory Exam Respiratory Exam: Clear to Ausculation Bilateral, NORMAL BREATHING PATTERN - Cardiovascular Exam Cardiovascular Exam: REGULAR RHYTHM, +S1, +S2, Murmur - GI/Abdominal Exam GI & Abdominal Exam: Soft, Normal Bowel Sounds. absent: Tenderness - Extremities Exam Extremities Exam: Full ROM, Normal Capillary Refill, Normal Inspection. absent : Joint Swelling, Pedal Edema - Back Exam Back Exam: NORMAL INSPECTION - Neurological Exam Neurological Exam: Alert, Awake, CN II-XII Intact, Normal Gait, Oriented x3 - Psychiatric Exam Psychiatric exam: Normal Affect, Normal Mood - Skin Skin Exam: Dry, Intact, Normal Color, Warm Assessment and Plan (1) Chest pain Assessment & Plan: stress test mildly abnormal stable to dc home on maximal medical therapy keep pt on asa, bb, statins and nitrates Status: Acute (2) CHF exacerbation Assessment & Plan: Low normal LVEF cont bb, acei low dose lasix Status: Acute (3) History of pulmonary embolism Status: Acute (4) Hypertension Assessment & Plan: cont current meds Status: Acute (5) Left ventricular systolic dysfunction Assessment & Plan: mild low normal LVEF Status: Acute
[2017-06-03 06:43] LABS: BASO % 0.5 % (0.0-2.0); EOS # 0.2 K/uL (0.0-0.7); EOS % 3.1 % (0.0-4.0); HEMATOCRIT 36.7 % (34.0-47.0); LYMPH # 2.3 K/uL (1.0-4.3); LYMPH % 32.4 % (20.0-40.0); MEAN CORPUSCULAR HGB CONC 32.1 g/dL (33.0-37.0); MEAN PLATELET VOLUME 8.4 fL (7.2-11.7); MONO # 0.7 K/uL (0.0-0.8); MONO % 9.6 % (0.0-10.0); NRBC % 0.1 % (0.0-2.0); RED CELL DISTRIBUTION WIDTH 14.9 % (11.5-14.5); WHITE BLOOD COUNT 7.2 K/uL (4.8-10.8)
[2017-06-03 06:47] LABS: INR 2.2
[2017-06-03 07:51] VITALS: PULSE 66
[2017-06-03 08:33] VITALS: BP 125/80; RESP 17; TEMP 98.2; O2SAT 97
[2017-06-03] MEDS: Pantoprazole 40 mg EC Tab PO SCH (09:26)
[2017-06-03] MEDS ORDERED: Pneumococcal 23-Valent Vaccine IM ONE (10:00)
[2017-06-03] MEDS ORDERED: Influenza Virus Vaccine (Afluria Inactive dont use ) IM ONE (10:00)
--- NOTE | 2017-06-03 11:47 | CP.PCM.PN ---
<SHAILA HERMOSILLO - Last Filed: 06/03/17 11:45> Subjective - Date & Time of Evaluation Date of Evaluation: 06/03/17 Time of Evaluation: 07:40 - Subjective Subjective: Shaila Hermosillo DO PGY1 - Cardiology Progress Note for Dr. Browne Patient seen and examined at bedside. No events overnight. Patient had stress test yesterday, tolerated it well. Patient denies any episodes of chest pain or dyspnea overnight, and currently denies any CP, SOB, CAR, palpitations. Patient inquiring about when she will be able to go home. Objective - Vital Signs/Intake and Output Vital Signs (last 24 hours): Temp Pulse Resp BP Pulse Ox 98.2 F 66 17 125/80 97 06/03/17 07:10 06/03/17 07:47 06/03/17 07:10 06/03/17 09:26 06/03/17 07:10 - Medications Medications: Current Medications Aspirin (Ecotrin) 81 mg PO DAILY [facility] Last Admin: 06/03/17 09:26 Dose: 81 mg Carvedilol (Coreg) 12.5 mg PO BID [facility] Last Admin: 06/03/17 09:26 Dose: 12.5 mg Furosemide (Lasix) 20 mg IVP BID [facility] Last Admin: 06/03/17 09:26 Dose: 20 mg Lisinopril (Zestril) 2.5 mg PO DAILY [facility] Last Admin: 06/03/17 09:26 Dose: 2.5 mg Metformin HCl (Glucophage) 500 mg PO AC [facility] Last Admin: 06/03/17 08:30 Dose: 500 mg Pantoprazole Sodium (Protonix Ec Tab) 40 mg PO DAILY [facility] Last Admin: 06/03/17 09:26 Dose: 40 mg Rosuvastatin Calcium (Crestor) 20 mg PO HS [facility] Last Admin: 06/02/17 22:08 Dose: 20 mg - Labs Labs: 06/03/17 06:29 06/02/17 07:09 PT 25.3 SECONDS (9.7-12.2) H 06/03/17 06:29 INR 2.2 06/03/17 06:29 APTT 36 SECONDS (21-34) H 05/31/17 21:00 - Constitutional Appears: Non-toxic, No Acute Distress - Head Exam Head Exam: ATRAUMATIC, NORMOCEPHALIC - Eye Exam Eye Exam: EOMI, Normal appearance - ENT Exam ENT Exam: Mucous Membranes Moist - Neck Exam Neck Exam: Full ROM, Normal Inspection - Respiratory Exam Respiratory Exam: Clear to Ausculation Bilateral. absent: Rales, Rhonchi, Wheezes - Cardiovascular Exam Cardiovascular Exam: RRR, +S1, +S2 - GI/Abdominal Exam GI & Abdominal Exam: Soft. absent: Tenderness - Extremities Exam Extremities Exam: absent: Calf Tenderness, Pedal Edema - Neurological Exam Neurological Exam: Alert, Awake, Oriented x3 - Psychiatric Exam Psychiatric exam: Normal Affect, Normal Mood - Skin Skin Exam: Dry, Intact Assessment and Plan - Assessment and Plan (Free Text) Assessment: 72 yo F with extensive cardiac and coagulopathic history presents complaining of chest pain Plan: 1. Chest pain - ANGELA - Atypical chest pain in an elderly diabetic female with extensive past medical history, concerning for ACS - Patient has history of DVT/PE, but is therapeutic on coumadin and has IVF filter in place, so unlikely to be PE - EKG shows no signs of acute ischemia; Trops indeterminate, but plateaued x3 - Echo and stress test show low normal LVEF, improved since prior echo - Stress test mildly abnormal; mild apical defect noted - Continue ASA, statin, coumadin 2. h/o CHF LVEF 50% - Appears stable and compensated at this time - Repeat echo shows low-normal LVEF - Continue ASA, BB, Lasix, ACEi, nitrates 3. HTN - BP currently stable - continue BB, Lasix - Switch CCB for ACEi Patient may be discharged to home on current regimen, as above, with outpatient follow up in 1-2 weeks Patient seen, discussed, and reviewed with attending <Jesu Browne - Last Filed: 06/03/17 15:58> Objective - Vital Signs/Intake and Output Vital Signs (last 24 hours): Temp Pulse Resp BP Pulse Ox 98.2 F 66 17 125/80 97 06/03/17 07:10 06/03/17 07:47 06/03/17 07:10 06/03/17 09:26 06/03/17 07:10 Intake and Output: 06/03/17 06/03/17 06:59 18:59 Intake Total 700 Balance 700 - Labs Labs: 06/03/17 06:29 06/02/17 07:09 PT 25.3 SECONDS (9.7-12.2) H 06/03/17 06:29 INR 2.2 06/03/17 06:29 APTT 36 SECONDS (21-34) H 05/31/17 21:00 Assessment and Plan (1) Chest pain Status: Acute (2) CHF exacerbation Status: Acute (3) History of pulmonary embolism Status: Acute (4) Hypertension Status: Acute (5) Left ventricular systolic dysfunction Status: Acute Attending/Attestation - Attestation I have personally seen and examined this patient.: Yes I have fully participated in the care of the patient.: Yes I have reviewed all pertinent clinical information, including history, physical exam and plan: Yes Notes (Text): 06/03/17 15:57 chest pain atypical stress test mild apical defect stable to in home maximal medical therapy outpt evaluation in 1-2 weeks incresae dose of lasix to 40mg po daily add imdur
--- NOTE | 2017-06-03 20:04 | CARD ---
APPROVED REPORT EKG Measurement Heart [id number] CO [id number] <Conclusion> Sinus bradycardia T wave abnormality, consider lateral ischemia Abnormal ECG
--- NOTE | 2017-06-04 03:31 | CP.PCM.DIS ---
Provider - Provider Date of Admission: 05/31/17 15:52 Attending physician: Beau Concepcion MD Consults: Dr. Browne Time Spent in preparation of Discharge (in minutes): 30 Hospital Course - Lab Results Lab Results: Most Recent Lab Values WBC 7.2 K/uL (4.8-10.8) 06/03/17 06:29 RBC 4.36 Mil/uL (3.80-5.20) 06/03/17 06:29 Hgb 11.8 g/dL (11.0-16.0) 06/03/17 06:29 Hct 36.7 % (34.0-47.0) 06/03/17 06: MCV 84.0 fL (81.0-99.0) 06/03/17 06: MCH 27.0 pg (27.0-31.0) 06/03/17 06: MCHC 32.1 g/dL (33.0-37.0) L 06/03/17 06: RDW 14.9 % (11.5-14.5) H 06/03/17 06:29 Plt Count 259 K/uL (130-400) 06/03/17 06:29 MPV 8.4 fL (7.2-11.7) 06/03/17 06: Neut % (Auto) 54.4 % (50.0-75.0) 06/03/17 06: Lymph % (Auto) 32.4 % (20.0-40.0) 06/03/17 06: [place] % (Auto) 9.6 % (0.0-10.0) 06/03/17 06:29 Eos % (Auto) 3.1 % (0.0-4.0) 06/03/17 06:29 Baso % (Auto) 0.5 % (0.0-2.0) 06/03/17 06: Neut # 3.9 K/uL (1.8-7.0) 06/03/17 06:29 Lymph # 2.3 K/uL (1.0-4.3) 06/03/17 06:29 [place] # 0.7 K/uL (0.0-0.8) 06/03/17 06:29 Eos # 0.2 K/uL (0.0-0.7) 06/03/17 06:29 Baso # 0.0 K/uL (0.0-0.2) 06/03/17 06:29 PT 25.3 SECONDS (9.7-12.2) H 06/03/17 06:29 INR 2.2 06/03/17 06:29 APTT 36 SECONDS (21-34) H 05/31/17 21:00 Sodium 141 mmol/L (132-148) 06/02/17 07:09 Potassium 4.2 mmol/L (3.6-5.2) 06/02/17 07:09 Chloride 101 mmol/L (98-107) 06/02/17 07:09 Carbon Dioxide 22 mmol/L (22-30) 06/02/17 07:09 Anion Gap 22 (10-20) H 06/02/17 07:09 BUN 31 mg/dL (7-17) H 06/02/17 07:09 Creatinine 1.2 MG/DL (0.7-1.2) 06/02/17 07:09 Est GFR ( Amer) 54 06/02/17 07:09 Est GFR (Non-Af Amer) 44 06/02/17 07:09 POC Glucose (mg/dL) 137 mg/dL (65-110) H 06/03/17 12:07 Random Glucose 125 mg/dL (65-105) H 06/02/17 07:09 Hemoglobin A1c 8.7 % (4.2-6.5) H D 06/01/17 03:36 Calcium 8.7 mg/dl (8.6-10.4) 06/02/17 07:09 Total Bilirubin 0.7 mg/dL (0.2-1.3) 06/02/17 07:09 AST 26 U/L (14-36) 06/02/17 07:09 ALT 32 U/L (9-52) 06/02/17 07:09 Alkaline Phosphatase 54 U/L (38-126) 06/02/17 07:09 Total Creatine Kinase 142 U/L (30-135) H 06/01/17 03:36 CK-MB (Mass) 1.09 ng/mL (0.0-3.38) 06/01/17 03:36 Troponin I 0.0140 ng/mL (0.00-0.120) 05/31/17 15:00 Troponin I, Quant 0.0160 ng/mL (0.00-0.120) 06/01/17 03:36 NT-Pro-B Natriuret Pep 240 pg/mL (0-900) 05/31/17 20:14 Total Protein 7.7 g/dL (6.3-8.3) 06/02/17 07:09 Albumin 4.3 g/dL (3.5-5.0) 06/02/17 07:09 Globulin 3.4 gm/dL (2.2-3.9) 06/02/17 07:09 Albumin/Globulin Ratio 1.3 (1.0-2.1) 06/02/17 07:09 Triglycerides 163 mg/dL (0-149) H 06/01/17 03:36 Cholesterol 156 mg/dL (0-199) 06/01/17 03:36 LDL Cholesterol Direct 82 mg/dL (0-129) 06/01/17 03:36 HDL Cholesterol 44 mg/dL (30-70) 06/01/17 03:36 TSH 3rd Generation 2.07 mIU/L (0.46-4.68) 05/31/17 20:14 Discharge Exam - Head Exam Head Exam: ATRAUMATIC, NORMOCEPHALIC Discharge Plan - Follow Up Plan Condition: STABLE Disposition: HOME/ ROUTINE Instructions: Heart Failure (DC), Chest Pain (DC), Heart Healthy Diet (DC)
== END 2017-06-03 14:07 | disposition home or self-care (01) ==
LOC: C.ER 14:04 → C.9E 15:52 → C.6T 19:33
PROVIDERS: ADMIT Internal Medicine; ATTEND Internal Medicine
DX: I25.10 Atherosclerotic heart disease of native coronary artery without angina pectoris (principal); E78.00 Pure hypercholesterolemia, unspecified; I13.0 Hypertensive heart and chronic kidney disease with heart failure and stage 1 through stage 4 chronic kidney disease, or unspecified chronic kidney disease; I50.9 Heart failure, unspecified; N18.9 Chronic kidney disease, unspecified
CPT/HCPCS: 36415; 71010; 78452; 80053; 80061; 82948; 83036; 83880; 84443; 84484; 85025; 85610; 85730; 93005; 93017; 93306; 99285; A9502; G0378; J1940

== ENCOUNTER 2017-10-26 09:45 | Emergency (ER) | payer OTHER, SELFPAY ==
[2017-10-26 10:15] VITALS: BMI 31.1
[2017-10-26 10:17] VITALS: TEMP 98.4; O2SAT 99
[2017-10-26] MEDS ORDERED: Lidocaine 2% w Epi 1:100,000 Inj IJ STA (10:47)
[2017-10-26] MEDS ORDERED: Lidocaine 1% w Epi 1:100,000 Inj ONE (10:59)
--- NOTE | 2017-10-26 11:57 | C.PDOC ---
Time Seen by Provider: 10/26/17 10:40 Chief Complaint (Nursing): Abnormal Skin Integrity History Per: Patient Onset/Duration Of Symptoms: Days (about 2 weeks) Current Symptoms Are (Timing): Still Present Location Of Injury: Posterior: Back (Upper) Quality Of Symptoms: Painful, Swollen Severity: Moderate Additional History Per: Prior Records Past Medical History Reviewed: Historical Data, Nursing Documentation, Vital Signs Vital Signs: Last Vital Signs Temp 98.4 F 10/26/17 10:15 Pulse 54 L 10/26/17 10:15 Resp 16 10/26/17 10:15 BP 121/70 10/26/17 10:15 Pulse Ox 99 10/26/17 10:15 - Medical History PMH: Cardia Arrhythmia, CHF, Colonic Polyps, Diabetes, Deep Vein Thrombosis ( RLE IN 2014), HTN, Hypercholesterolemia, Peripheral Edema, Pulmonary Embolism - [facility] Procedures PLICATION OF VENA CAVA (05/05/15) Family History: States: Unknown Family Hx - Social History Hx Alcohol Use: No Hx Substance Use: No - Immunization History Hx Tetanus Toxoid Vaccination: No Hx Influenza Vaccination: No Hx Pneumococcal Vaccination: No Review Of Systems Except As Marked, All Systems Reviewed And Found Negative. Constitutional: Negative for: Fever ENT: Negative for: Throat Pain Cardiovascular: Negative for: Chest Pain Respiratory: Negative for: Cough, Shortness of Breath Gastrointestinal: Negative for: Vomiting, Abdominal Pain Musculoskeletal: Negative for: Neck Pain Neurological: Negative for: Weakness, Numbness, Headache Physical Exam - Physical Exam Appears: Non-toxic, No Acute Distress Skin: Warm, Dry Head: Atraumatic, Normacephalic Eye(s): bilateral: PERRL, EOMI Neck: Normal ROM, Supple Lymphatic: No Adenopathy Cardiovascular: Rhythm Regular Respiratory: Normal Breath Sounds, No Accessory Muscle Use Gastrointestinal/Abdominal: Soft, No Tenderness Back: No CVA Tenderness, Other (Abscess/Carbuncle on upper back) Extremity: Normal ROM Neurological/Psych: Oriented x3, Normal Motor, Normal Sensation ED Course And Treatment O2 Sat by Pulse Oximetry: 99 Pulse Ox Interpretation: Normal Reassessment Condition: Improved - Incision & Drainage Of Abscess Anesthesia: Lidocaine 2%, With Epi Prep Used: Betadine Procedure: Incised W/Scalpel Blade#: (11), Drained Pus, Cultures Obtained And Sent To Lab Disposition Counseled Patient/Family Regarding: Studies Performed, Diagnosis, Need For Followup, Rx Given - Disposition Referrals: [facility] [Outside] Disposition: HOME/ ROUTINE Disposition Time: 11:58 Condition: IMPROVED Additional Instructions: Follow up with your doctor or return to the ER in 2-3 days for a wound check. Return to the ER immediately if you develop fever, worsening of symptoms or if you have any other concerns. Prescriptions: Sulfamethoxazole/Trimethoprim [Bactrim DS 800 mg-160 mg] 1 tab PO BID #14 tab Instructions: Abscess Incision and Drainage (DC) Print Language: BURMESE - Clinical Impression Clinical Impression: Abscess of upper back excluding scapular region
[2017-10-26 12:07] VITALS: BP 118/72; PULSE 60; RESP 18
== END 2017-10-26 12:07 | disposition home or self-care (01) ==
LOC: C.ER 09:45
DX: L02.212 Cutaneous abscess of back [any part, except buttock and flank] (principal)

== ENCOUNTER 2017-10-28 09:30 | Emergency (ER) | payer SELFPAY ==
[2017-10-28 09:30] VITALS: BMI 31.1
[2017-10-28 09:38] VITALS: BP 112/64; PULSE 53; RESP 18; TEMP 97.5; O2SAT 98
--- NOTE | 2017-10-28 10:01 | C.PDOC ---
History Of Present Illness 72 y/o female returns to ED for wound check of abscess to mid upper back that was I & D 2 days ago. Pt states she is taking the prescribed Bactrim, and states she feels better, notes area is less painful now. Denies fever, or any other complaints. Time Seen by Provider: 10/28/17 09:40 Chief Complaint (Nursing): Wound Check History Per: Patient History/Exam Limitations: no limitations Onset/Duration Of Symptoms: Days Ago Current Symptoms Are (Timing): Still Present Location Of Injury: Posterior: Back Additional History Per: Patient Past Medical History Reviewed: Historical Data, Nursing Documentation, Vital Signs Vital Signs: Last Vital Signs Temp 97.5 F L 10/28/17 09:35 Pulse 53 L 10/28/17 09:35 Resp 18 10/28/17 09:35 BP 112/64 10/28/17 09:35 Pulse Ox 98 10/28/17 12:05 - Medical History PMH: Cardia Arrhythmia, CHF, Colonic Polyps, Diabetes, Deep Vein Thrombosis ( RLE IN 2014), HTN, Hypercholesterolemia, Peripheral Edema, Pulmonary Embolism Denies: Chronic Kidney Disease - [facility] Procedures PLICATION OF VENA CAVA (05/05/15) Family History: States: Unknown Family Hx - Social History Hx Alcohol Use: No Hx Substance Use: No - Immunization History Hx Tetanus Toxoid Vaccination: No Hx Influenza Vaccination: No Hx Pneumococcal Vaccination: No Review Of Systems Except As Marked, All Systems Reviewed And Found Negative. Constitutional: Negative for: Fever, Chills Skin: Positive for: Other (abscess to mid upper back) Physical Exam - Physical Exam Appears: Non-toxic, No Acute Distress Skin: Warm, Dry, Other (2cm of abscess to mid upper back which is indurated with 2 pustules draining mild amount of purulent discharge) Head: Normacephalic Eye(s): bilateral: Normal Inspection Extremity: Normal ROM Neurological/Psych: Oriented x3, Normal Speech ED Course And Treatment O2 Sat by Pulse Oximetry: 98 Pulse Ox Interpretation: Normal Progress Note: Wound was redressed. Pt was instructed to continue to antibiotics , and to return to ED in 2 days for wound check. Disposition - Disposition Referrals: [facility] at [facility] [Outside] Disposition: HOME/ ROUTINE Disposition Time: 10:00 Condition: STABLE Additional Instructions: CONTINUE YOUR ANTIBIOTICS KEEP AREA CLEAN AND DRY RETURN IN TWO DAYS FOR WOUND CHECK CONTINUE CON FADY ANTIBITICOS MANTEN[place] EL YOLANDA LIMPIA Y SECA REGRESO EN DOS BUI PARA CHEQUEO DE HERIDAS Instructions: Wound Care Forms: [facility] (Malian) Print Language: KOREAN - POA Present On Arrival: None - Clinical Impression Clinical Impression: Wound check, abscess - Scribe Statement The provider has reviewed the documentation as recorded by the Scribe Odilon Arevalo All medical record entries made by the Scribe were at my direction and personally dictated by me. I have reviewed the chart and agree that the record accurately reflects my personal performance of the history, physical exam, medical decision making, and the department course for this patient. I have also personally directed, reviewed, and agree with the discharge instructions and disposition.
== END 2017-10-28 10:07 | disposition home or self-care (01) ==
LOC: C.ER 09:30
DX: Z48.00 Encounter for change or removal of nonsurgical wound dressing (principal); L02.212 Cutaneous abscess of back [any part, except buttock and flank]

== ENCOUNTER 2017-10-31 08:22 | Emergency (ER) | payer SELFPAY ==
[2017-10-31 08:22] VITALS: BMI 31.1
--- NOTE | 2017-10-31 09:32 | C.PDOC ---
History Of Present Illness 72 year old female presents to the ED for a wound check. Patient was evaluated in the ED one week ago for complaints of an abscess to her upper back. Patient underwent incision and drainage of the abscess and was prescribed Bactrim. Patient now presents for further evaluation. She denies fever, chills. Time Seen by Provider: 10/31/17 09:14 Chief Complaint (Nursing): Abnormal Skin Integrity History Per: Patient History/Exam Limitations: no limitations Onset/Duration Of Symptoms: Days Current Symptoms Are (Timing): Still Present Additional History Per: Patient Past Medical History Reviewed: Historical Data, Nursing Documentation, Vital Signs Vital Signs: Last Vital Signs Temp 98.4 F 10/31/17 09:35 Pulse 50 L 10/31/17 09:35 Resp 16 10/31/17 09:35 BP 159/74 H 10/31/17 09:35 Pulse Ox 97 10/31/17 13:07 - Medical History PMH: Cardia Arrhythmia, CHF, Colonic Polyps, Diabetes, Deep Vein Thrombosis ( RLE IN 2014), HTN, Hypercholesterolemia, Peripheral Edema, Pulmonary Embolism Denies: Chronic Kidney Disease Surgical History: No Surg Hx - [facility] Procedures PLICATION OF VENA CAVA (05/05/15) Family History: States: Unknown Family Hx - Social History Hx Alcohol Use: No Hx Substance Use: No - Immunization History Hx Tetanus Toxoid Vaccination: No Hx Influenza Vaccination: No Hx Pneumococcal Vaccination: No Review Of Systems Constitutional: Negative for: Fever, Chills Skin: Positive for: Rash Physical Exam - Physical Exam Appears: No Acute Distress Skin: Warm, Dry, Other (draining abscess to upper back) Extremity: Normal ROM, Capillary Refill (less than 2 seconds ) Neurological/Psych: Oriented x3, Normal Speech, Normal Cognition ED Course And Treatment O2 Sat by Pulse Oximetry: 97 (on RA) Pulse Ox Interpretation: Normal Medical Decision Making Medical Decision Making: Assessment: wound check Progress: Draining abscess to upper back. Area was massaged with expression of pus. Sterile dressing applied. Patient tolerated well. Patient is noted to be on Coumadin and will have her bloodwork checked today at outpatient lab. Patient is stable for discharge and is advised to continue taking Bactrim as prescribed. Disposition Counseled Patient/Family Regarding: Studies Performed, Diagnosis, Need For Followup, Rx Given - Disposition Referrals: [facility] [Outside] Disposition: HOME/ ROUTINE Disposition Time: 09:30 Condition: STABLE Additional Instructions: follow up with in 3 days for wound check continue antibiotic return to ER if symptoms worsens or progress Prescriptions: Sulfamethoxazole/Trimethoprim [Bactrim DS 800 mg-160 mg] 1 tab PO BID #14 tab Instructions: Abscess Drainage, Percutaneous (DC) Forms: Gen Discharge Inst Tanzanian, [employer] (Tanzanian) Print Language: [place] - Clinical Impression Clinical Impression: Wound check, abscess - Scribe Statement The provider has reviewed the documentation as recorded by the Scribe (Faith Arevalo) Provider Attestation: All medical record entries made by the Scribe were at my direction and personally dictated by me. I have reviewed the chart and agree that the record accurately reflects my personal performance of the history, physical exam, medical decision making, and the department course for this patient. I have also personally directed, reviewed, and agree with the discharge instructions and disposition.
[2017-10-31 09:39] VITALS: BP 159/74; PULSE 50; RESP 16; TEMP 98.4
[2017-10-31 13:04] VITALS: O2SAT 97
== END 2017-10-31 09:39 | disposition home or self-care (01) ==
LOC: C.ER 08:22
DX: Z48.00 Encounter for change or removal of nonsurgical wound dressing (principal); L02.212 Cutaneous abscess of back [any part, except buttock and flank]

== ENCOUNTER 2017-11-02 09:26 | Emergency (ER) | payer SELFPAY ==
--- NOTE | 2017-11-02 11:34 | C.PDOC ---
History Of Present Illness 72 y/o female with a past medical history of hypertension and diabetes, presents for wound check of abscesses on her upper back. Patient has been seen twice already for the same and never had an I&D as the abscesses were already draining. Patient reports since last check, they have continued to drain. No fever, chills, nausea, or vomiting. Taking her bactrim as prescribed. PMD: none Time Seen by Provider: 11/02/17 09:41 Chief Complaint (Nursing): Wound Check History Per: Patient History/Exam Limitations: no limitations Onset/Duration Of Symptoms: Abscess Current Symptoms Are (Timing): Still Present Quality Of Symptoms: Draining Past Medical History Reviewed: Historical Data, Nursing Documentation, Vital Signs Vital Signs: Last Vital Signs Temp 98.6 F 11/02/17 09:36 Pulse 62 11/02/17 09:36 Resp 18 11/02/17 09:36 BP 176/66 H 11/02/17 09:36 Pulse Ox 99 11/02/17 11:37 - Medical History PMH: Cardia Arrhythmia, CHF, Colonic Polyps, Diabetes, Deep Vein Thrombosis ( RLE IN 2014), HTN, Hypercholesterolemia, Peripheral Edema, Pulmonary Embolism Denies: Chronic Kidney Disease - [facility] Procedures PLICATION OF VENA CAVA (05/05/15) Family History: States: Unknown Family Hx - Social History Hx Alcohol Use: No Hx Substance Use: No - Immunization History Hx Tetanus Toxoid Vaccination: No Hx Influenza Vaccination: No Hx Pneumococcal Vaccination: No Review Of Systems Except As Marked, All Systems Reviewed And Found Negative. Constitutional: Negative for: Fever, Chills Gastrointestinal: Negative for: Nausea, Vomiting Skin: Positive for: Other (abscesses to upper back, (+) draining) Physical Exam - Physical Exam Appears: Well, Non-toxic, No Acute Distress Skin: Warm, Dry Back: Other (2 small abscesses noted to back, with purulent drainage and small region of induration) ED Course And Treatment O2 Sat by Pulse Oximetry: 99 (RA) Pulse Ox Interpretation: Normal Medical Decision Making Medical Decision Making: Clinical Impression: Sebaceous cyst Purulent drainage noted on exam. Sterile dressing applied in the ER. Counseled patient regarding wound care. Patient advised to f/u with the clinic tomorrow. Disposition Counseled Patient/Family Regarding: Diagnosis, Need For Followup - Disposition Referrals: [facility] [Outside] Disposition: HOME/ ROUTINE Disposition Time: 11:35 Condition: STABLE Instructions: Epidermal Cyst (DC) Forms: Gen Discharge Inst Maltese, [employer] (Maltese) - POA Present On Arrival: None - Clinical Impression Clinical Impression: Change of dressing, Sebaceous cyst - Scribe Statement The provider has reviewed the documentation as recorded by the Zhangibannie Dunne Provider Attestation: All medical record entries made by the Zhangibannie were at my direction and personally dictated by me. I have reviewed the chart and agree that the record accurately reflects my personal performance of the history, physical exam, medical decision making, and the department course for this patient. I have also personally directed, reviewed, and agree with the discharge instructions and disposition.
[2017-11-02 11:46] VITALS: BP 136/71; PULSE 54; RESP 20; TEMP 98.1
[2017-11-02 11:48] VITALS: O2SAT 99
== END 2017-11-02 11:49 | disposition home or self-care (01) ==
LOC: C.ER 09:26
DX: L72.3 Sebaceous cyst (principal); Z48.00 Encounter for change or removal of nonsurgical wound dressing; E11.9 Type 2 diabetes mellitus without complications; E78.00 Pure hypercholesterolemia, unspecified; I50.9 Heart failure, unspecified; I10 Essential (primary) hypertension

== ENCOUNTER 2017-11-30 09:59 | Emergency (ER) | payer OTHER ==
[2017-11-30 10:15] VITALS: BMI 32.1
[2017-11-30 10:21] VITALS: O2SAT 98
[2017-11-30 12:59] LABS: BASO % 0.3 % (0.0-2.0); EOS # 0.1 K/uL (0.0-0.7); EOS % 1.6 % (0.0-4.0); HEMOGLOBIN 11.3 g/dL (11.0-16.0); LYMPH # 2.2 K/uL (1.0-4.3); LYMPH % 24.4 % (20.0-40.0); MEAN CELL VOLUME 83.7 fL (81.0-99.0); MEAN CORPUSCULAR HEMOGLOBIN 27.7 pg (27.0-31.0); MEAN CORPUSCULAR HGB CONC 33.1 g/dL (33.0-37.0); MEAN PLATELET VOLUME 8.2 fL (7.2-11.7); MONO # 0.8 K/uL (0.0-0.8); MONO % 8.7 % (0.0-10.0); NEUT # 5.9 K/uL (1.8-7.0); RBC 4.08 Mil/uL (3.80-5.20)
[2017-11-30 13:00] LABS: WHITE BLOOD COUNT 9.1 K/uL (4.8-10.8)
[2017-11-30 13:03] LABS: INR 1.5; PROTHROMBIN TIME 17.4 SECONDS (9.7-12.2)
[2017-11-30 13:07] LABS: ALB/GLOB RATIO 1.1 (1.0-2.1); ALBUMIN 4.1 g/dL (3.5-5.0); ALT/SGPT 22 U/L (9-52); AST/SGOT 25 U/L (14-36); BLOOD UREA NITROGEN 16 mg/dL (7-17); CALCIUM 8.9 mg/dl (8.6-10.4); GFR AFRICAN-AMERICAN > 60; GFR NON-AFRICAN AMERICAN > 60
--- NOTE | 2017-11-30 13:08 | RAD ---
HISTORY: right neck pain, h/o CHF, h/o PE COMPARISON: Chest radiograph dated 05/31/2017 TECHNIQUE: Chest PA and lateral FINDINGS: LUNGS: No active pulmonary disease. PLEURA: No significant pleural effusion identified. No pneumothorax apparent. CARDIOVASCULAR: Cardiomediastinal silhouette stably enlarged. OSSEOUS STRUCTURES: Unchanged. VISUALIZED UPPER ABDOMEN: Normal. OTHER FINDINGS: None. IMPRESSION: No active disease.
--- NOTE | 2017-11-30 13:13 | RAD ---
PROCEDURE: Cervical Spine Radiographs. HISTORY: Pain. COMPARISON: None. FINDINGS: BONES: Alignment maintained. No fracture. Dens Intact. DISC SPACES: Multilevel narrowing. SOFT TISSUES: Normal. No prevertebral soft tissue swelling. OTHER FINDINGS: None. IMPRESSION: No acute fracture. Multilevel degenerative changes
[2017-11-30 13:15] LABS: CK-MB 0.68 ng/mL (0.0-3.38)
[2017-11-30 13:53] LABS: SQUAMOUS EPITHIAL 2 /hpf (0-5); URINE BACTERIA MOD (<OCC); URINE BILIRUBIN NEGATIVE (NEGATIVE); URINE BLOOD NEGATIVE (NEGATIVE); URINE CLARITY Hazy (Clear); URINE COLOR Yellow (YELLOW); URINE GLUCOSE (UA) NORMAL (Normal); URINE LEUKOCYTE ESTERASE 3+ Leu/uL (Negative); URINE PROTEIN 2+ mg/dL (NEGATIVE); URINE UROBILINOGEN NORMAL mg/dL (0.2-1.0)
[2017-11-30] MEDS ORDERED: Oxycodone/Acetaminophen 5/325 mg Tab PO STA (15:31)
[2017-11-30] MEDS ORDERED: Lidocaine 5% Patch TD STA (15:31)
[2017-11-30] MEDS ORDERED: Lidocaine 5% Patch TD ONE (16:03)
[2017-11-30] MEDS ORDERED: Oxycodone/Acetaminophen 5/325 mg Tab ONE (16:04)
--- NOTE | 2017-11-30 16:45 | C.PDOC ---
History Of Present Illness 72 y/o female presents to the ER complaining of pain to the right side of her neck which has been present since yesterday morning. Patient states that the pain radiates to the back of her head,right shoulder,and upper back. Patient reports that she cannot move her head secondary to pain. Patient denies having injuries and other complaints. Time Seen by Provider: 11/30/17 11:37 Chief Complaint (Nursing): Back Pain History Per: Patient History/Exam Limitations: no limitations Onset/Duration Of Symptoms: Days Current Symptoms Are (Timing): Still Present Severity: Moderate Past Medical History Reviewed: Historical Data, Nursing Documentation, Vital Signs Vital Signs: Last Vital Signs Temp 98.2 F 11/30/17 16:25 Pulse 59 L 11/30/17 16:25 Resp 16 11/30/17 16:25 BP 133/86 11/30/17 16:25 Pulse Ox 98 11/30/17 17:35 - Medical History PMH: Cardia Arrhythmia, CHF, Colonic Polyps, Diabetes, Deep Vein Thrombosis ( RLE IN 2014), HTN, Hypercholesterolemia, Peripheral Edema, Pulmonary Embolism Denies: Chronic Kidney Disease Other Surgeries: Hx of surgeries - [facility] Procedures PLICATION OF VENA CAVA (05/05/15) Family History: States: No Known Family Hx - Social History Hx Alcohol Use: No Hx Substance Use: No - Immunization History Hx Tetanus Toxoid Vaccination: No Hx Influenza Vaccination: No Hx Pneumococcal Vaccination: No Review Of Systems Except As Marked, All Systems Reviewed And Found Negative. Musculoskeletal: Positive for: Neck Pain (right-sided neck pain) Neurological: Negative for: Weakness, Numbness Physical Exam - Physical Exam Appears: Non-toxic, No Acute Distress Skin: Normal Color, Warm Head: Atraumatic, Normacephalic Eye(s): bilateral: Normal Inspection Nose: Normal Oral Mucosa: Moist Neck: No Midline Cervical Tenderness, Supple, Other (muscle spasm in right lateral neck muscle) Chest: Symmetrical Cardiovascular: Rhythm Regular Respiratory: Normal Breath Sounds, No Rales, No Rhonchi, No Wheezing Extremity: Normal ROM Neurological/Psych: Oriented x3, Normal Speech ED Course And Treatment - Laboratory Results Result Diagrams: 11/30/17 12:51 11/30/17 12:51 O2 Sat by Pulse Oximetry: 98 (RA) Pulse Ox Interpretation: Normal - Radiology CXR: Interpreted by Me, Viewed By Me CXR Interpretation: Yes: No Acute Disease - Other Rad [id number] Spine X-Ray: Interpreted by Me, Viewed By Me Interpretation: PROCEDURE: Cervical Spine Radiographs. HISTORY: Pain. COMPARISON: None. FINDINGS: BONES: Alignment maintained. No fracture. Dens Intact. DISC SPACES: Multilevel narrowing. SOFT TISSUES: Normal. No prevertebral soft tissue swelling. OTHER FINDINGS: None. IMPRESSION: No acute fracture. Multilevel degenerative changes Progress Note: Labs, UA, CXR, and X-Ray- Cervical Spine ordered. CXR and X-Ray - Cervical Spine are negative.Patient has been given Percocet PO.UA shows signs of UTI. Patient has been given Macrobid PO. Disposition - Disposition Referrals: Abby Gagnon MD [Staff Provider] - Disposition: HOME/ ROUTINE Disposition Time: 16:29 Condition: STABLE Additional Instructions: Follow up with your PMD within 1-2 days. Return to ED if feel worse. Prescriptions: Lidocaine 5% [Lidoderm] 1 patch TP DAILY #30 patch Nitrofurantoin Macrocrystals [Macrobid] 1 cap PO BID #14 cap oxyCODONE/Acetaminophen [Percocet 5/325 mg Tab] 1 tab PO QID PRN #20 tab PRN Reason: Pain Instructions: Torticollis, Adult Forms: [facility] (Cymro) Print Language: BURMESE - Clinical Impression Clinical Impression: Neck muscle spasm - PA / DUMP TRUCK OPERATOR / Resident Statement MD/DO has reviewed & agrees with the documentation as recorded. - Scribe Statement The provider has reviewed the documentation as recorded by the Bella Chung Provider Attestation All medical record entries made by the Zhangibannie were at my direction and personally dictated by me. I have reviewed the chart and agree that the record accurately reflects my personal performance of the history, physical exam, medical decision making, and the department course for this patient. I have also personally directed, reviewed, and agree with the discharge instructions and disposition.
[2017-12-01 11:17] VITALS: BP 133/86; PULSE 59; RESP 16; TEMP 98.2
== END 2017-11-30 17:00 | disposition home or self-care (01) ==
LOC: C.ER 09:59
DX: M62.838 Other muscle spasm (principal); E11.9 Type 2 diabetes mellitus without complications; E78.00 Pure hypercholesterolemia, unspecified; I10 Essential (primary) hypertension; I50.9 Heart failure, unspecified

== ENCOUNTER 2018-10-12 10:56 | Outpatient (CLI) | payer SELFPAY | END 2018-10-12 10:57 | disposition home or self-care (01) | LOC: C.VASC 10:56 | DX: I82.409 Acute embolism and thrombosis of unspecified deep veins of unspecified lower extremity (principal); I26.99 Other pulmonary embolism without acute cor pulmonale ==

== ENCOUNTER 2018-10-17 09:51 | Outpatient (CLI) | payer SELFPAY | END 2018-10-17 09:52 | disposition home or self-care (01) | LOC: C.CTH 09:51 | DX: I26.99 Other pulmonary embolism without acute cor pulmonale (principal) ==

== ENCOUNTER 2018-12-05 08:45 | Day surgery (SDC) | payer SELFPAY ==
--- NOTE | 2018-12-05 10:09 | CP.SDSHP ---
<Victor Hugo Arevalo - Last Filed: 12/05/18 10:06> Same Day Surgery H & P - History Proposed Procedure: colonoscopy Pre-Op Diagnosis: screening for colon cancer/surveiliance. hx of polyps - Previous Medical/Surgical History Cardiac: Hypertension, ASHD/CAD, Angina Endocrine/Metabolic: Diabetes Comments: HL - Allergies Allergies: Allergies No Known Allergies Allergy (Verified 11/02/17 09:36) - Current Medications Current Medications: amlodipine carvediolol lasix ibuprofen monotek metformin simvastatin - Physical Exam General Appearance: no acute distress Vital Signs: Vital Signs 12/05/18 09:14 Temperature 98 F Pulse Rate 84 Respiratory 16 Rate Blood Pressure 154/74 H O2 Sat by Pulse 98 Oximetry Neuro: WNL Heart: WNL Lungs: WNL GI: Other (obese, otherwise wNL) - Impression Impression: hx of colon polyps. surveilance/screening Pt. Evaluated Today:Candidate for Anesthesia & Procedure: Yes - Date & Time Date: 12/05/18 Time: 09:30 Short Stay Discharge - Short Stay Discharge Admitting Diagnosis/Reason for Visit: SCREENING Referrals: Abby Gagnon MD [Primary Care Provider] - <Randolph Cummings - Last Filed: 12/05/18 10:12> Same Day Surgery H & P - Allergies Allergies: Allergies No Known Allergies Allergy (Verified 11/02/17 09:36) - Physical Exam Vital Signs: Vital Signs 12/05/18 09:14 Temperature 98 F Pulse Rate 84 Respiratory 16 Rate Blood Pressure 154/74 H O2 Sat by Pulse 98 Oximetry Attending/Attestation - Attestation I have personally seen and examined this patient.: Yes I have fully participated in the care of the patient.: Yes I have reviewed all pertinent clinical information: Yes Notes (Text): 12/05/18 10:12 h/o colon polyps though unclear how long ago last exam. Had some pinking fluid from rectum but not documented overt bleeding.
[2018-12-05] MEDS ORDERED: Propofol 10 mg/ml Inj (20 ML) ONE (10:14)
[2018-12-05 11:40] VITALS: TEMP 98.4
[2018-12-05 11:42] VITALS: O2SAT 100
[2018-12-05 11:45] VITALS: PULSE 65; RESP 22
[2018-12-05 13:51] VITALS: BP 125/58
== END 2018-12-05 12:30 | disposition home or self-care (01) ==
LOC: C.ENDO 08:45
PROVIDERS: ATTEND Internal Medicine Gastroenterology
DX: Z08 Encounter for follow-up examination after completed treatment for malignant neoplasm (principal); D12.6 Benign neoplasm of colon, unspecified; K64.8 Other hemorrhoids; K57.30 Diverticulosis of large intestine without perforation or abscess without bleeding
CPT/HCPCS: 45380; 88305; J2704

== ENCOUNTER 2018-12-09 12:28 | Emergency (ER) | payer SELFPAY ==
[2018-12-09 12:50] VITALS: RESP 18; O2SAT 96
--- NOTE | 2018-12-09 13:08 | C.PDOC ---
History Of Present Illness 73 year old female patient presents to the ER complains of x4 day history of swelling and mild erythema to the medial right thigh associated with swelling in the right leg. Patient reports she has PMHx of DVT and PE in the past and was on warfarin for several years but discontinue last year. Patient denies trauma, chest pain, shortness of breath, numbness, weakness and fever. Time Seen by Provider: 12/09/18 12:51 Chief Complaint (Nursing): Lower Extremity Problem/Injury History Per: Patient History/Exam Limitations: no limitations Onset/Duration Of Symptoms: Days (x4) Current Symptoms Are (Timing): Still Present Past Medical History Reviewed: Historical Data, Nursing Documentation, Vital Signs Vital Signs: Last Vital Signs Temp 98 F 12/09/18 12:49 Pulse 71 12/09/18 12:49 Resp 18 12/09/18 12:49 BP 151/68 H 12/09/18 12:49 Pulse Ox 96 12/09/18 12:49 - Medical History PMH: Cardia Arrhythmia, CHF, Colonic Polyps, Diabetes, Deep Vein Thrombosis (RLE IN 2014), HTN, Hypercholesterolemia, Peripheral Edema, Pulmonary Embolism - [facility] Procedures PLICATION OF VENA CAVA (05/05/15) Family History: States: Unknown Family Hx - Social History Hx Alcohol Use: No Hx Substance Use: No - Immunization History Hx Tetanus Toxoid Vaccination: No Hx Influenza Vaccination: No Hx Pneumococcal Vaccination: No Review Of Systems Except As Marked, All Systems Reviewed And Found Negative. Constitutional: Negative for: Fever, Other (trauma ) Cardiovascular: Negative for: Chest Pain Respiratory: Negative for: Shortness of Breath Musculoskeletal: Positive for: Other (swelling and mild erythema to the right medial thigh associated with swelling of right leg ) Neurological: Negative for: Weakness, Numbness Physical Exam - Physical Exam Appears: Non-toxic, No Acute Distress Skin: Warm, Dry Head: Normacephalic Eye(s): bilateral: Normal Inspection Oral Mucosa: Moist Throat: Normal Neck: Normal ROM, Supple Cardiovascular: Rhythm Regular Respiratory: Normal Breath Sounds Gastrointestinal/Abdominal: Soft, No Tenderness Extremity: Normal ROM (x4), Calf Tenderness (right; mild ), Capillary Refill (<2 sec ), No Deformity, Swelling (8x6 cm area of swelling and erythema to the medial right thigh; mild swelling to right calf ) Extremity: Bilateral: Normal Color And Temperature Pulses: Left Dorsalis Pedis: Normal, Right Dorsalis Pedis: Normal Neurological/Psych: Oriented x3, Normal Speech, Normal Cognition, Normal Motor, Normal Sensation ED Course And Treatment - Laboratory Results Result Diagrams: 12/09/18 13:15 12/09/18 13:15 O2 Sat by Pulse Oximetry: 96 (RA) Pulse Ox Interpretation: Normal Medical Decision Making Medical Decision Making: Plans: --- Lovenox order was place for Doppler US however there is no Doppler US available today, case was discuss with Dr. Skelton and Dr. Good. D-dimer was ordered and was found to be elevated. Case discuss with Dr. Skelton who states that it is okay to discharge patient home to return tomorrow morning for possible US and repeat Lovenox dose. Case discuss with patient, patient agrees with plan. Disposition - Disposition Referrals: [facility] at [facility] [Outside] Disposition: HOME/ ROUTINE Disposition Time: 14:52 Condition: GUARDED Additional Instructions: YOU MUST RETURN TOMORROW MORNING FOR ULTRASOUND AND NEXT LOVENOX DOSE. Follow up with the medical doctor within 1-2 days. Return if worsened. Prescriptions: Cephalexin [Keflex] 500 mg PO BID #19 capsule Instructions: Deep Vein Thrombosis (Blood Clots in the Legs) (DC) Forms: [employer] (Mohawk) Print Language: MOROCCAN - Clinical Impression Clinical Impression: Deep venous thrombosis of lower extremity - PA / DRAMA DIRECTOR / Resident Statement MD/ has reviewed & agrees with the documentation as recorded. - Scribe Statement The provider has reviewed the documentation as recorded by the Bella Ferreira Do All medical record entries made by the Scribe were at my direction and personally dictated by me. I have reviewed the chart and agree that the record accurately reflects my personal performance of the history, physical exam, medical decision making, and the department course for this patient. I have also personally directed, reviewed, and agree with the discharge instructions and disposition.
[2018-12-09 13:28] LABS: BASO # 0.1 K/uL (0.0-0.2); BASO % 0.8 % (0.0-2.0); EOS # 0.1 K/uL (0.0-0.7); EOS % 1.1 % (0.0-4.0); HEMOGLOBIN 11.8 g/dL (11.0-16.0); LYMPH # 2.1 K/uL (1.0-4.3); LYMPH % 24.4 % (20.0-40.0); MEAN CELL VOLUME 85.5 fL (81.0-99.0); MEAN CORPUSCULAR HEMOGLOBIN 27.7 pg (27.0-31.0); MEAN CORPUSCULAR HGB CONC 32.4 g/dL (33.0-37.0); MEAN PLATELET VOLUME 8.5 fL (7.2-11.7); MONO # 0.7 K/uL (0.0-0.8); MONO % 7.8 % (0.0-10.0); NEUT # 5.8 K/uL (1.8-7.0); NEUT % 65.9 % (50.0-75.0); NRBC % 0.1 % (0.0-2.0); RBC 4.26 Mil/uL (3.80-5.20)
[2018-12-09 13:29] LABS: WHITE BLOOD COUNT 8.8 K/uL (4.8-10.8)
[2018-12-09 13:37] LABS: ALB/GLOB RATIO 1.5 (1.0-2.1); ALT/SGPT 9 U/L (9-52); AST/SGOT 21 U/L (14-36); BLOOD UREA NITROGEN 18 mg/dL (7-17); CALCIUM 8.8 mg/dl (8.6-10.4); GFR NON-AFRICAN AMERICAN 55
[2018-12-09 13:55] LABS: INR 1.1; PROTHROMBIN TIME 12.3 SECONDS (9.7-12.2)
[2018-12-09] MEDS ORDERED: Enoxaparin 40 mg Syringe SC STA (14:30)
[2018-12-09 15:06] VITALS: BP 154/70; PULSE 74; TEMP 98.2
== END 2018-12-09 15:07 | disposition home or self-care (01) ==
LOC: C.ER 12:28
DX: I82.401 Acute embolism and thrombosis of unspecified deep veins of right lower extremity (principal)
CPT/HCPCS: 80053; 85025; 85378; 85610; 85730; 96372; 99284; J1650

== ENCOUNTER 2018-12-10 14:10 | Emergency (ER) | payer SELFPAY ==
[2018-12-10 14:22] VITALS: BP 129/75; PULSE 72; RESP 20; TEMP 98.1; O2SAT 96
[2018-12-10] MEDS ORDERED: Enoxaparin 40 mg Syringe SC STA (14:46)
[2018-12-10] MEDS ORDERED: Enoxaparin 80 mg Syringe ONE (15:02)
--- NOTE | 2018-12-10 15:09 | C.PDOC ---
History Of Present Illness 73 y/o female comes to ED to receive a lovenox injection. Patient was seen here yesterday for pain and swelling of her right leg, and was discharged with suspected DVT; however, doppler was not available so patient is here now. Patient denies any trauma or fever. <Makenzie Faye - Last Filed: 12/10/18 15:27> History Per: Patient History/Exam Limitations: no limitations Onset/Duration Of Symptoms: Days Current Symptoms Are (Timing): Still Present <Makenzie Faye - Last Filed: 12/10/18 15:27> <Enrique Good - Last Filed: 12/13/18 13:36> Time Seen by Provider: 12/10/18 14:24 Chief Complaint (Nursing): Medical Clearance Past Medical History Reviewed: Historical Data, Nursing Documentation, Vital Signs Vital Signs: Last Vital Signs Temp 98.1 F 12/10/18 14:21 Pulse 72 12/10/18 14:21 Resp 20 12/10/18 14:21 BP 129/75 12/10/18 14:21 Pulse Ox 96 12/10/18 14:21 - Medical History PMH: Cardia Arrhythmia, CHF, Colonic Polyps, Diabetes, Deep Vein Thrombosis (RLE IN 2015), HTN, Hypercholesterolemia, Peripheral Edema, Pulmonary Embolism Denies: Chronic Kidney Disease - [facility] Procedures PLICATION OF VENA CAVA (05/05/15) Family History: States: No Known Family Hx - Social History Hx Alcohol Use: No Hx Substance Use: No - Immunization History Hx Tetanus Toxoid Vaccination: No Hx Influenza Vaccination: No Hx Pneumococcal Vaccination: No <Makenzie Faye - Last Filed: 12/10/18 15:27> Vital Signs: Last Vital Signs Temp 98.1 F 12/10/18 14:21 Pulse 72 12/10/18 14:21 Resp 20 12/10/18 14:21 BP 129/75 12/10/18 14:21 Pulse Ox 96 12/10/18 15:28 - [facility] Procedures PLICATION OF VENA CAVA (05/05/15) <Enrique Good - Last Filed: 12/13/18 13:36> Review Of Systems Except As Marked, All Systems Reviewed And Found Negative. Constitutional: Negative for: Fever Musculoskeletal: Positive for: Leg Pain (Right). Negative for: Back Pain <Makenzie Faye - Last Filed: 12/10/18 15:27> Physical Exam - Physical Exam Appears: Non-toxic, No Acute Distress Skin: Warm, Dry Head: Normacephalic Eye(s): bilateral: Normal Inspection Oral Mucosa: Moist Neck: Supple Extremity: No Deformity, Other (Right medial thigh has mild erythema, swelling, and tenderness) Extremity: Bilateral: Normal ROM Neurological/Psych: Oriented x3, Normal Speech, Normal Motor <Devika Fayejoasiya Bethea - Last Filed: 12/10/18 15:27> ED Course And Treatment O2 Sat by Pulse Oximetry: 96 (RA) Pulse Ox Interpretation: Normal <Devika Fayejoasiya Bethea - Last Filed: 12/10/18 15:27> Medical Decision Making Medical Decision Making: Plan: --Pritesh IN Old records reviewed, patient was seen here yesterday and had labs done that were within normal limits, had elevated d-dimer. <JotoyaDevikaMakenzie Lake - Last Filed: 12/10/18 15:27> Disposition <Makenzie Faye - Last Filed: 12/10/18 15:27> - Disposition Disposition Time: 15:11 <Enrique Good - Last Filed: 12/13/18 13:36> - Disposition Referrals: [facility] at [facility] [Outside] Disposition: HOME/ ROUTINE Condition: GOOD Additional Instructions: COME TO THE ED TOMORROW AT 8AM WITHOUT FAIL TO HAVE DOPPLER OF THE LOWER LEG Follow up with the medical doctor within 1-2 days. Return if worsened. Instructions: Deep Vein Thrombosis (Blood Clots in the Legs) (DC) Forms: [employer] (Spanish) - Clinical Impression Clinical Impression: DVT (deep venous thrombosis) - PA / DEOILING MACHINE OPERATOR / Resident Statement MD/DO has reviewed & agrees with the documentation as recorded. - Scribe Statement The provider has reviewed the documentation as recorded by the Zhangibe Jenny Michaud All medical record entries made by the Scribannie were at my direction and personally dictated by me. I have reviewed the chart and agree that the record accurately reflects my personal performance of the history, physical exam, medical decision making, and the department course for this patient. I have also personally directed, reviewed, and agree with the discharge instructions and disposition. <Makenzie Faye - Last Filed: 12/10/18 15:27>
== END 2018-12-10 15:11 | disposition home or self-care (01) ==
LOC: C.ER 14:10
DX: I82.401 Acute embolism and thrombosis of unspecified deep veins of right lower extremity (principal)
CPT/HCPCS: 96372; 99282; J1650

== ENCOUNTER 2018-12-11 07:21 | Inpatient (IN) | payer SELFPAY ==
--- NOTE | 2018-12-11 08:14 | C.PDOC ---
History Of Present Illness 73 y/o female,w/PMhx of diabetes, HTN, PE, and IVC Filter( 3 yrs ago), presents to the ER complaining of shortness of breath and right leg pain and swelling which has been present for the past 2 weeks. Patient states that she was seen for same complaint in [place] ER for the past 2 days. Patient reports that she was told to return to the ER to have sonogram. She notes that she was taken off her anticoagulants in September 2018 per flat breakdown processor.Denies having weakness and numbness. Time Seen by Provider: 12/11/18 07:45 Chief Complaint (Nursing): Lower Extremity Problem/Injury History Per: Affiliate Marketing Specialist ([id number]) History/Exam Limitations: no limitations Onset/Duration Of Symptoms: Days Current Symptoms Are (Timing): Still Present Severity: Moderate Past Medical History Reviewed: Historical Data, Nursing Documentation, Vital Signs Vital Signs: Last Vital Signs Temp 97.8 F 12/11/18 07:25 Pulse 60 12/11/18 07:25 Resp 18 12/11/18 07:25 BP 129/66 12/11/18 07:25 Pulse Ox 95 12/11/18 07:25 - Medical History PMH: Cardia Arrhythmia, CHF, Colonic Polyps, Diabetes, Deep Vein Thrombosis (RLE IN 2015), HTN, Hypercholesterolemia, Peripheral Edema, Pulmonary Embolism Denies: Chronic Kidney Disease Other Surgeries: Hx of surgeries - [facility] Procedures PLICATION OF VENA CAVA (05/05/15) Family History: States: No Known Family Hx - Social History Hx Alcohol Use: No Hx Substance Use: No - Immunization History Hx Tetanus Toxoid Vaccination: No Hx Influenza Vaccination: No Hx Pneumococcal Vaccination: No Review Of Systems Constitutional: Negative for: Fever, Chills Cardiovascular: Negative for: Chest Pain Respiratory: Positive for: Shortness of Breath Musculoskeletal: Positive for: Leg Pain (right leg pain and swelling) Neurological: Negative for: Weakness, Numbness Physical Exam - Physical Exam Appears: Non-toxic, No Acute Distress Skin: Warm, Dry, Other (golf ball sized firm tender mass to medial right thigh, mild erythema and warm to touch in medial right thigh) Head: Atraumatic, Normacephalic Eye(s): bilateral: Normal Inspection Neck: Supple Chest: Symmetrical Cardiovascular: Rhythm Regular Respiratory: No Rales, No Rhonchi, No Wheezing Extremity: Normal ROM, No Pedal Edema Pulses: Right Femoral: Normal, Right Dorsalis Pedis: Normal Neurological/Psych: Oriented x3, Normal Speech, Normal Cognition ED Course And Treatment - Laboratory Results Result Diagrams: 12/11/18 08:23 12/11/18 08:23 ECG: Interpreted By Me, Viewed By Me ECG Rhythm: Sinus Rhythm Interpretation Of ECG: NSR with nonspecific ST and T wave abnormality and prolonged QT Rate From EC O2 Sat by Pulse Oximetry: 95 (RA) Pulse Ox Interpretation: Normal - CT Scan/US CT-Chest Other Rad Studies (CT/US): Read By Radiologist, Radiology Report Reviewed CT/US Interpretation: Date of service: 12/11/2018. CTA chest PE protocol. Indication: new right dvt with sob, hx pe. Technique: Contiguous axial images were obtained through the chest with intravenous contrast enhancement. Sagittal and coronal reconstructions were generated and reviewed. This CT exam was performed using 1 or more of the following dose reduction techniques: Automated exposure control, adjustment of the MAA and/or kV according to patient size, and /or use of iterative reconstruction technique. IV contrast: 100 mL Visipaque 320 IV. . Radiation dose (DLP): 591.19 MGy-cm. Comparison: Multiple prior studies, most recent in CTA chest performed 10/17/18. Findings: Visualized portions of the inferior thyroid gland appear heterogeneous with 10 mm hypodense nodule at the left lower pole. The mediastinal and hilar vascular structures appear within normal limits. Cardiomegaly. Coronary artery calcifications. Minimal atherosclerotic calcifications of the aorta. Right greater than left pulmonary emboli extending from the main pulmonary artery branches to involve the upper and subsegmental branches. No focal consolidation. No pleural eff usion. No pneumothorax. Small hiatal hernia/distal esophageal wall thickening. Limited visualized portions of the upper abdomen: Partially imaged 3.7 cm exophytic right renal cyst. Osseous demineralization. Multilevel degenerative changes. Impression: Interval development of acute bilateral pulmonary emboli as above. Cardiomegaly. Heterogeneous appearance of the included inferior thyroid gland with 10 mm hypodense nodule at the left lower pole. Additional findings as above. Medical Decision Making Medical Decision Making: Plan: --Labs --Venous Duplex Scan- Low Ext RT. Updates: 10:55 AM Case discussed with , hospitalist. requested ICU consult. ICU has been contacted. Pending call back. Disposition Discussed With : Lanie Yanes Doctor Will See Patient In The: Hospital - Disposition Disposition: HOSPITALIZED Disposition Time: 13:06 Condition: STABLE - Clinical Impression Clinical Impression: Bilateral pulmonary embolism, Right leg DVT - PA / WATCH ENGINE OPERATOR / Resident Statement MD/DO has reviewed & agrees with the documentation as recorded. - Scribe Statement The provider has reviewed the documentation as recorded by the Bella Chung Provider Attestation All medical record entries made by the Bella were at my direction and personally dictated by me. I have reviewed the chart and agree that the record accurately reflects my personal performance of the history, physical exam, medical decision making, and the department course for this patient. I have also personally directed, reviewed, and agree with the discharge instructions and disposition.
[2018-12-11 08:27] LABS: BASO # 0.1 K/uL (0.0-0.2); BASO % 0.8 % (0.0-2.0); EOS # 0.2 K/uL (0.0-0.7); EOS % 2.2 % (0.0-4.0); HEMOGLOBIN 11.6 g/dL (11.0-16.0); LYMPH # 2.4 K/uL (1.0-4.3); LYMPH % 35.6 % (20.0-40.0); MEAN CELL VOLUME 85.6 fL (81.0-99.0); MEAN CORPUSCULAR HEMOGLOBIN 27.8 pg (27.0-31.0); MEAN CORPUSCULAR HGB CONC 32.5 g/dL (33.0-37.0); MEAN PLATELET VOLUME 7.8 fL (7.2-11.7); MONO # 0.6 K/uL (0.0-0.8); MONO % 9.3 % (0.0-10.0); NEUT # 3.5 K/uL (1.8-7.0); NEUT % 52.1 % (50.0-75.0); RBC 4.18 Mil/uL (3.80-5.20); WHITE BLOOD COUNT 6.8 K/uL (4.8-10.8)
[2018-12-11 08:35] LABS: INR 1.2; PROTHROMBIN TIME 12.6 SECONDS (9.7-12.2)
[2018-12-11 08:40] LABS: ALB/GLOB RATIO 1.4 (1.0-2.1); ALT/SGPT < 6 U/L (9-52); AST/SGOT 21 U/L (14-36); BLOOD UREA NITROGEN 21 mg/dL (7-17); CALCIUM 8.8 mg/dl (8.6-10.4); GFR NON-AFRICAN AMERICAN 55
[2018-12-11] MEDS ORDERED: Iodixanol 320 MG/ML 100 ML BOTTLE IV ONE (09:48)
--- NOTE | 2018-12-11 10:51 | CT ---
Date of service: 12/11/2018 CTA chest PE protocol Indication: new right dvt with sob, hx pe Technique: Contiguous axial images were obtained through the chest with intravenous contrast enhancement. Sagittal and coronal reconstructions were generated and reviewed. This CT exam was performed using 1 or more of the following dose reduction techniques: Automated exposure control, adjustment of the MAA and/or kV according to patient size, and/or use of iterative reconstruction technique. IV contrast: 100 mL Visipaque 320 IV Radiation dose (DLP): 591.19 MGy-cm. Comparison: Multiple prior studies, most recent in CTA chest performed 10/17/18 Findings: Visualized portions of the inferior thyroid gland appear heterogeneous with 10 mm hypodense nodule at the left lower pole. The mediastinal and hilar vascular structures appear within normal limits. Cardiomegaly. Coronary artery calcifications. Minimal atherosclerotic calcifications of the aorta. Right greater than left pulmonary emboli extending from the main pulmonary artery branches to involve the upper and subsegmental branches. No focal consolidation. No pleural effusion. No pneumothorax. Small hiatal hernia/distal esophageal wall thickening. Limited visualized portions of the upper abdomen: Partially imaged 3.7 cm exophytic right renal cyst. Osseous demineralization. Multilevel degenerative changes. Impression: Interval development of acute bilateral pulmonary emboli as above. Cardiomegaly. Heterogeneous appearance of the included inferior thyroid gland with 10 mm hypodense nodule at the left lower pole. Additional findings as above. Findings discussed with ALEXA Parrish on 12/11/18 at 10:41 a.m.
--- NOTE | 2018-12-11 13:09 | CP.PCM.HP ---
History of Present Illness - History of Present Illness History of Present Illness: H&P for Dr. Yanes. HPI: Patient is a 73 y/o female with PMhx of HTN, DM, CHF, and hx of DVT and PE with IVC placement presented to the ED complaining of a painful area on her right thigh that has been gradually worsening for the past 2 weeks. She states the area is firm and hot and eventually enlarged and became more painful. She used ointments and pain killers for the pain but they did not help. She also reports mild shortness of breath for the last few days. Prior to onset of symptoms 2 weeks ago, patient states she took a 3 [address] ride to [place] and 3 hours back without stopping to rest or stretch. Patient presented to the ED on 12/09 and 12/10/18 for this R thigh pain and received Lovenox injections for elevated D-dimer, a script for Keflex and instructed to return today for LE doppler. Patient denies fever, chills, palpitations, chest pain, diaphoresis, numbness, tingling, any trauma or use of razors in the area. Patient has previous history of DVT and PE, and had been on Warfarin for 3 years, which was discontinued on 10/25/18 after negative CTA and LE dupplex studies as well as negative Prothrombin mutation, anticardioliping Ig, Factor 5, and Protein C/S blood work. PMHx: DM, HTN, CHF with EF 50%, cardiomegaly, PE 2014, DVT with IVC placement PShx: colonoscopy with polypectomy 12/22, IVC placement 2014, Neck surgery, Esophogeal polyp removal, Allergies: NKDA Meds: Amlodipine 5 mg PO daily, Metformin 850 mg PO BID, Isosorbide Mononitrate 10 mg PO daily, Furosemide 20 mg PO daily, Carvedilol 12.5 mg PO BID, Ibuprofen 200 mg PO PRN. Famhx: brother of [place] and HTN, family history of diabetes Mother had cancer (abdomen). Social hx: Lives with daughter and . Denies alcohol, illicit drug, or tobacco use. PMD: [facility] Review of Systems: -Gen: No fever, No chills, No headache, No lethargy, No weakness. -HEENT: No dizziness, No change in vision, No change in hearing, No sore throat, No dysphagia, No nasal congestion, No mucous. -Cardio: No chest pain, No palpitations, No lower extremity edema, No orthopnea. -Resp: No cough, + dyspnea, No hemoptysis, No wheezing, No pain on inspiration. -GI: No abdominal pain, No nausea/vomiting, No diarrhea/constipation, No hematochezia, No hematemesis. -: No dysuria, No urinary freq, No incontinence, No hematuria, No change in urinary stream. -MSK: +RLE pain, swelling, warmth, No muscle weakness, No radiating pain. -Skin: No itching, +swelling and warms RLE, No lesions. -Neuro: No confusion, No numbness, No tingling, No focal weakness, No radicular pain, No syncope. -Psych: No anxiety, No depression, No H/I, No S/I, No hallucinations. Present on Admission - Present on Admission Any Indicators Present on Admission: No Past Patient History - Infectious Disease Hx of Infectious Diseases: None - Past Medical History & Family History Past Medical History?: Yes - Past Social History Smoking Status: Never Smoked - CARDIAC Hx Cardia Arrhythmia: Yes Hx Congestive Heart Failure: Yes Hx Hypercholesterolemia: Yes Hx Hypertension: Yes Hx Peripheral Edema: Yes - PULMONARY Hx Pulmonary Embolism: Yes - NEUROLOGICAL Hx Neurological Disorder: No - HEENT Hx HEENT Problems: No - RENAL Hx Chronic Kidney Disease: No - ENDOCRINE/METABOLIC Hx Endocrine Disorders: Yes Hx Diabetes Mellitus Type 2: Yes - HEMATOLOGICAL/ONCOLOGICAL Hx Blood Disorders: No - INTEGUMENTARY Hx Dermatological Problems: No - MUSCULOSKELETAL/RHEUMATOLOGICAL Hx Musculoskeletal Disorders: No Hx Falls: No - GASTROINTESTINAL Hx Gastrointestinal Disorders: Yes - GENITOURINARY/GYNECOLOGICAL Hx Genitourinary Disorders: No - PSYCHIATRIC Hx Substance Use: No - SURGICAL HISTORY Hx Surgeries: Yes Other/Comment: THROAT POLYP, NECK SX - ANESTHESIA Hx Anesthesia: Yes Hx Anesthesia Reactions: No Hx Malignant Hyperthermia: No Meds Allergies/Adverse Reactions: Allergies Allergy/AdvReac Type Severity Reaction Status Date / Time No Known Allergies Allergy Verified 12/11/18 07:28 Physical Exam - Constitutional Appears: Non-toxic, No Acute Distress - Head Exam Head Exam: ATRAUMATIC, NORMOCEPHALIC - Eye Exam Eye Exam: EOMI, Normal appearance, PERRL - ENT Exam ENT Exam: Mucous Membranes Moist - Neck Exam Neck exam: Positive for: Full Rom, Normal Inspection. Negative for: Lymphadenopathy - Respiratory Exam Respiratory Exam: Clear to Auscultation Bilateral. absent: Accessory Muscle Use, Rales, Rhonchi, Wheezes - Cardiovascular Exam Cardiovascular Exam: REGULAR RHYTHM, +S1, +S2. absent: JVD, Systolic Murmur - GI/Abdominal Exam GI & Abdominal Exam: Normal Bowel Sounds, Soft. absent: Distended, Guarding, Rebound, Tenderness - Extremities Exam Extremities exam: Positive for: full ROM, normal capillary refill, pedal pulses present. Negative for: calf tenderness, pedal edema Additional comments: 5.5 cm warm, tender, indurated area to R inner thigh. No fluctuance. - Neurological Exam Neurological exam: Alert, CN II-XII Intact, Oriented x3 - Psychiatric Exam Psychiatric exam: Normal Affect, Normal Mood - Skin Skin Exam: Dry, Intact, Warm Results - Vital Signs Recent Vital Signs: Last Vital Signs Temp 98.8 F 12/11/18 12:11 Pulse 80 12/11/18 12:11 Resp 18 12/11/18 12:11 BP 133/68 12/11/18 12:11 Pulse Ox 95 12/11/18 13:07 - Labs Result Diagrams: 12/11/18 08:23 12/11/18 08:23 Labs: Laboratory Results - last 24 hr 12/11/18 12/11/18 12/11/18 08:23 08:23 08:23 WBC 6.8 RBC 4.18 Hgb 11.6 Hct 35.8 MCV 85.6 MCH 27.8 MCHC 32.5 L RDW 15.0 H Plt Count 263 MPV 7.8 Neut % (Auto) 52.1 Lymph % (Auto) 35.6 [place] % (Auto) 9.3 Eos % (Auto) 2.2 Baso % (Auto) 0.8 Neut # (Auto) 3.5 Lymph # (Auto) 2.4 [place] # (Auto) 0.6 Eos # (Auto) 0.2 Baso # (Auto) 0.1 PT 12.6 H INR 1.2 APTT 32 Sodium 136 Potassium 4.5 Chloride 103 Carbon Dioxide 28 Anion Gap 10 BUN 21 H Creatinine 1.0 Est GFR ( Amer) > 60 Est GFR (Non-Af Amer) 55 Random Glucose 149 H Calcium 8.8 Total Bilirubin 0.9 AST 21 ALT < 6 L D Alkaline Phosphatase 53 Total Protein 6.8 Albumin 4.0 Globulin 2.8 Albumin/Globulin Ratio 1.4 Assessment & Plan - Assessment and Plan (Free Text) Plan: 73 year old female admitted for acute PE and DVT Acute PE/Acute DVT Hx of PE/DVT CTA: Interval development of acute bilateral pulmonary emboli as above. Cardiomegaly. Heterogeneous appearance of the included inferior thyroid gland with 10 mm hypodense nodule at the left lower pole. See full report. LE duplex: Acute thrombus spheno-femoral junction, phlebitis GSV. D-dimer: 2525 EKG: NSR with nonspecific ST and T wave abnormality and prolonged QT ANGELA x1 negavitve, follow up serial ROMIs and EKGs F/u Echo Echo 2017:50% EF. Global hypokinesis of LV. Transmitral doppler flow pattern is grad I abnormal relaxation pastern. Mild-Mod AR, Trace-mild aortic regurgitation. F/U Factor 5 leiden, Lupus anticoag hexagonal, Lupus anticoag eval, antiphospholipid ab Previous negative studies [id number]: Factor 5 activity, Protein C ag, Protein S antigen, anticardiolipin IgG/A/M, and protrombin mutation Lovenox 75mg SC Q12H Hx of CHF F/u Echo Furosemide 20mg PO once daily Coreg 12.5mg PO BID Lisinopril 2.5mg PO daily Hx of HTN Coreg 12.5mg PO BID Isosorbide Mononitrate 10mg PO daily Amlodipine 5mg PO daily Hx of DM Metformin 850mg BID- hold for 48 hours due to contrast Aspirin 81mg PO daily Lisinopril 2.5mg PO daily RISS-medium Hypoglycemia protocol HH/CCD Hx of HLD Crestor 2.5mg PO daily alternate for home med simvastatin Hx Gerd Pepcid 20mg PO daily PPX Pt on therapeutic lovenox 75mg SC Q12H Pepcid 20mg PO daily HH/CCD Discussed with Dr. Yanes. Karmen Malhotra, PGY-1
[2018-12-11] MEDS ORDERED: Enoxaparin 80 mg Syringe ONE (14:40)
[2018-12-11] MEDS: Enoxaparin 80 mg Syringe SC SCH (14:40)
--- NOTE | 2018-12-11 15:20 | CP.PCM.CON ---
History of Present Illness - History of Present Illness History of Present Illness: Patient is a 73-year-old female with history of hypertension, diabetes, heart failure, history of DVT and PE in the past also had IVC filter in the past. Patient came to the emergency room because of the right-sided upper thigh pain, worsening over 2 weeks duration. Patient was noted to have deep venous thrombosis, and also pulmonary embolism, new. ICU evaluation was called in, because of the abnormal CAT scan. Clinically patient is having no resting shortness of breath. Patient is having no chest pain. Denies any cough or no mucus or blood. PMHx: DM, HTN, CHF with EF 50%, cardiomegaly, PE 2014, DVT with IVC placement PShx: colonoscopy with polypectomy 12/22, IVC placement 2014, Neck surgery, Esophogeal polyp removal, Allergies: NKDA Meds: Amlodipine 5 mg PO daily, Metformin 850 mg PO BID, Isosorbide Mononitrate 10 mg PO daily, Furosemide 20 mg PO daily, Carvedilol 12.5 mg PO BID, Ibuprofen 200 mg PO PRN. Famhx: brother of [place] and HTN, family history of diabetes Mother had cancer (abdomen). Social hx: Lives with daughter and . Denies alcohol, illicit drug, or tobacco use. PMD: [facility] Review of systems: No headache or visual symptoms. Exertional dyspnea noted. No chest pain. Right-sided leg swelling and pain noted. Clinical examination: Chest bilateral good air entry, regular heart sounds noted. Abdomen soft, nontender. Right-sided upper thigh redness and painful, tender region noted over the right upper thigh, medial aspect. CAT scan of the chest is showing bilateral pulmonary embolism, more on the left side. DVT, also noted on the right leg. IVC filter Assessment and recommendation: Patient is a 73-year-old female with history diabetes, hypertension, heart failure, DVT. Now came to the emergency room the new onset DVT, and also PE. Patient was not on any anticoagulation recently. Clinically patient is stable. Can be treated in the telemetry unit. Continue the Lovenox and the given antibiotic for possible localized thrombophlebitis. If there is any deterioration recall ice evaluation. Past Patient History - Infectious Disease Hx of Infectious Diseases: None - Past Medical History & Family History Past Medical History?: Yes - Past Social History Smoking Status: Never Smoked - CARDIAC Hx Cardia Arrhythmia: Yes Hx Congestive Heart Failure: Yes Hx Hypercholesterolemia: Yes Hx Hypertension: Yes Hx Peripheral Edema: Yes - PULMONARY Hx Pulmonary Embolism: Yes - NEUROLOGICAL Hx Neurological Disorder: No - HEENT Hx HEENT Problems: No - RENAL Hx Chronic Kidney Disease: No - ENDOCRINE/METABOLIC Hx Endocrine Disorders: Yes Hx Diabetes Mellitus Type 2: Yes - HEMATOLOGICAL/ONCOLOGICAL Hx Blood Disorders: No - INTEGUMENTARY Hx Dermatological Problems: No - MUSCULOSKELETAL/RHEUMATOLOGICAL Hx Musculoskeletal Disorders: No Hx Falls: No - GASTROINTESTINAL Hx Gastrointestinal Disorders: Yes - GENITOURINARY/GYNECOLOGICAL Hx Genitourinary Disorders: No - PSYCHIATRIC Hx Substance Use: No - SURGICAL HISTORY Hx Surgeries: Yes Other/Comment: THROAT POLYP, NECK SX - ANESTHESIA Hx Anesthesia: Yes Hx Anesthesia Reactions: No Hx Malignant Hyperthermia: No Meds Allergies/Adverse Reactions: Allergies Allergy/AdvReac Type Severity Reaction Status Date / Time No Known Allergies Allergy Verified 12/11/18 07:28 - Medications Medications: Current Medications Enoxaparin Sodium (Lovenox) 75 mg SC Q12H BEAU Results - Vital Signs Recent Vital Signs: Last Vital Signs Temp 99.1 F 12/11/18 15:03 Pulse 60 12/11/18 15:03 Resp 16 12/11/18 15:03 BP 129/71 12/11/18 15:03 Pulse Ox 96 12/11/18 15:03 - Labs Result Diagrams: 12/12/18 07:51 12/11/18 08:23 Labs: Laboratory Results - last 24 hr 12/11/18 12/11/18 12/11/18 08:23 08:23 08:23 WBC 6.8 RBC 4.18 Hgb 11.6 Hct 35.8 MCV 85.6 MCH 27.8 MCHC 32.5 L RDW 15.0 H Plt Count 263 MPV 7.8 Neut % (Auto) 52.1 Lymph % (Auto) 35.6 [place] % (Auto) 9.3 Eos % (Auto) 2.2 Baso % (Auto) 0.8 Neut # (Auto) 3.5 Lymph # (Auto) 2.4 [place] # (Auto) 0.6 Eos # (Auto) 0.2 Baso # (Auto) 0.1 PT 12.6 H INR 1.2 APTT 32 Sodium 136 Potassium 4.5 Chloride 103 Carbon Dioxide 28 Anion Gap 10 BUN 21 H Creatinine 1.0 Est GFR ( Amer) > 60 Est GFR (Non-Af Amer) 55 Random Glucose 149 H Calcium 8.8 Total Bilirubin 0.9 AST 21 ALT < 6 L D Alkaline Phosphatase 53 Total Protein 6.8 Albumin 4.0 Globulin 2.8 Albumin/Globulin Ratio 1.4
[2018-12-11 16:15] LABS: INR 1.2; PROTHROMBIN TIME 12.8 SECONDS (9.7-12.2)
[2018-12-11 16:58] LABS: CK-MB 0.54 ng/mL (0.0-3.38)
[2018-12-11] MEDS ORDERED: Dextrose 50% SYRINGE Inj (50 ml) IV PRN (17:34)
[2018-12-11] MEDS ORDERED: Glucagon Recombinant 1 mg Inj IM PRN (17:34)
[2018-12-11] MEDS: (Novolin R) Insulin Human Regular 100 units/ml vial SC SCH (23:10)
[2018-12-11] MEDS: Rosuvastatin Calcium 2.5 mg Tab PO SCH (23:15)
[2018-12-12 01:05] LABS: CK-MB 0.48 ng/mL (0.0-3.38); TROPONIN I 0.019 ng/mL (0.00-0.120)
[2018-12-12] MEDS: Enoxaparin 80 mg Syringe SC SCH ×2 (02:26→13:58)
[2018-12-12 07:59] LABS: BASO # 0.1 K/uL (0.0-0.2); BASO % 0.9 % (0.0-2.0); EOS # 0.2 K/uL (0.0-0.7); EOS % 2.7 % (0.0-4.0); HEMOGLOBIN 12.1 g/dL (11.0-16.0); LYMPH # 2.3 K/uL (1.0-4.3); MEAN CELL VOLUME 85.9 fL (81.0-99.0); MEAN CORPUSCULAR HEMOGLOBIN 27.9 pg (27.0-31.0); MEAN CORPUSCULAR HGB CONC 32.5 g/dL (33.0-37.0); MEAN PLATELET VOLUME 8.1 fL (7.2-11.7); MONO # 0.5 K/uL (0.0-0.8); MONO % 8.5 % (0.0-10.0); NEUT # 3.1 K/uL (1.8-7.0); NEUT % 50.9 % (50.0-75.0); NRBC % 0.1 % (0.0-2.0); RBC 4.33 Mil/uL (3.80-5.20); RED CELL DISTRIBUTION WIDTH 14.8 % (11.5-14.5); WHITE BLOOD COUNT 6.2 K/uL (4.8-10.8)
[2018-12-12] MEDS: (Novolin R) Insulin Human Regular 100 units/ml vial SC SCH ×4 (08:13→21:21)
[2018-12-12 08:21] LABS: ALB/GLOB RATIO 1.2 (1.0-2.1); ALBUMIN 3.8 g/dL (3.5-5.0); ALT/SGPT 9 U/L (9-52); AST/SGOT 24 U/L (14-36); BLOOD UREA NITROGEN 18 mg/dL (7-17); CALCIUM 9.3 mg/dl (8.6-10.4); GFR NON-AFRICAN AMERICAN > 60
[2018-12-12 08:22] LABS: CK-MB 0.36 ng/mL (0.0-3.38); TROPONIN I 0.015 ng/mL (0.00-0.120)
--- NOTE | 2018-12-12 12:00 | VASCLAB ---
Date of service: 12/11/2018 PROCEDURE: Right Lower Extremity Venous Duplex Exam. HISTORY: hx dvt, pain and swelling medial thigh PRIORS: None. TECHNIQUE: Right common femoral, femoral, popliteal and posterior tibial, peroneal and great saphenous veins were evaluated. Flow was assessed with color Doppler, compressibility, assessment of phasic flow and augmentation response. Report prepared by ALMITA Cherry FINDINGS: RIGHT: 1. Common Femoral Vein: 1.1. Compressibility - Fully compressible: Thrombus - None: Flow - Phasic: Augmentation -Normal: Reflux - None. 2. Femoral Vein: 2.1. Compressibility - Fully compressible: Thrombus - None: Flow - Phasic: Augmentation -Normal: Reflux - Severe >4.3s 3. Popliteal Vein: 3.1. Compressibility - Fully compressible: Thrombus - None: Flow - Phasic: Augmentation -Normal: Reflux - Severe >4.61s 4. Posterior Tibial Vein: 4.1. Compressibility - Fully compressible: Thrombus - None: Flow - Phasic: Augmentation -Normal: Reflux - None. 5. Peroneal Vein: 5.1. Compressibility - Fully compressible: Thrombus - None: Flow - Phasic: Augmentation -Normal: Reflux - None. 6. Great Saphenous Vein: (Not compressible at thigh level) 6.1. Compressibility - Incompressible: Thrombus -Acute: Flow - Absent OTHER FINDINGS: RIGHT: Non compressible saphenofemoral junction with acute thrombus formation. Non compressible upper great saphenous vein. Normal venous flow noted in the LEFT common femoral vein. IMPRESSION: Acute thrombus formation at the right saphenofemoral junction, with reduced phasic venous flow. Superficial phlebitis of the right upper great saphenous vein. Finding were reported to Dr. Urbina at 9:21 a.m.
[2018-12-12 13:23] LABS: INR 1.1; PROTHROMBIN TIME 12.3 SECONDS (9.7-12.2)
--- NOTE | 2018-12-12 19:35 | CP.PCM.PN ---
Subjective - Date & Time of Evaluation Date of Evaluation: 12/12/18 Time of Evaluation: 19:34 - Subjective Subjective: HOSPITALIST SERVICE Pt s/e at bedside, denies any complaints at this time. Pt is to be d/c home once INR optimized w/ coumadin therapy, agrees with plan. Denies CP SOB FC [place] Objective - Vital Signs/Intake and Output Vital Signs (last 24 hours): Temp Pulse Resp BP Pulse Ox 98.5 F 64 20 135/75 95 12/12/18 16:00 12/12/18 18:05 12/12/18 18:05 12/12/18 18:05 12/12/18 16:00 - Medications Medications: Current Medications Acetaminophen (Tylenol 325mg Tab) 650 mg PO Q6 PRN PRN Reason: Pain, moderate (4-7) Amlodipine Besylate (Norvasc) 5 mg PO DAILY [facility] Last Admin: 12/12/18 11:05 Dose: 5 mg Aspirin (Aspirin Chewable) 81 mg PO DAILY [facility] Last Admin: 12/12/18 11:06 Dose: 81 mg Carvedilol (Coreg) 12.5 mg PO BID [facility] Last Admin: 12/12/18 11:06 Dose: 12.5 mg Dextrose (Dextrose 50% Inj) 0 ml IV STAT PRN; Protocol PRN Reason: Hypoglycemia Protocol Dextrose (Glutose 15) 0 gm PO ONCE PRN; Protocol PRN Reason: Hypoglycemia Protocol Enoxaparin Sodium (Lovenox) 75 mg SC Q12H [facility] Last Admin: 12/12/18 13:58 Dose: Not Given Famotidine (Pepcid) 20 mg PO DAILY [facility] Last Admin: 12/12/18 11:06 Dose: 20 mg Furosemide (Lasix) 20 mg PO DAILY [facility] Last Admin: 12/12/18 11:06 Dose: 20 mg Glucagon (Glucagen Diagnostic Kit) 0 mg IM STAT PRN; Protocol PRN Reason: Hypoglycemia Protocol Dextrose (Dextrose 5% In Water 1000 Ml) 1,000 mls @ 0 mls/hr IV .Q0M PRN; Protocol PRN Reason: Hypoglycemia Protocol Insulin Human Regular (Novolin R) 0 unit SC ACHS [facility]; Protocol Last Admin: 12/12/18 17:30 Dose: Not Given Isosorbide Mononitrate (Ismo) 10 mg PO DAILY@0630 [facility] Lisinopril (Zestril) 2.5 mg PO DAILY [facility] Last Admin: 12/12/18 11:06 Dose: 2.5 mg Rosuvastatin Calcium (Crestor) 2.5 mg PO HS [facility] Last Admin: 12/11/18 23:15 Dose: 2.5 mg - Labs Labs: 12/12/18 07:51 12/12/18 07:51 PT 12.3 SECONDS (9.7-12.2) H 12/12/18 13:12 INR 1.1 12/12/18 13:12 APTT 32 SECONDS (21-34) 12/11/18 08:23 - Additional Findings Additional findings: - Constitutional Appears: Non-toxic, No Acute Distress - Head Exam Head Exam: ATRAUMATIC, NORMOCEPHALIC - Eye Exam Eye Exam: EOMI, Normal appearance, PERRL - ENT Exam ENT Exam: Mucous Membranes Moist - Neck Exam Neck exam: Positive for: Full Rom, Normal Inspection. Negative for: Lymphadenopathy - Respiratory Exam Respiratory Exam: Clear to Auscultation Bilateral. absent: Accessory Muscle Use, Rales, Rhonchi, Wheezes - Cardiovascular Exam Cardiovascular Exam: REGULAR RHYTHM, +S1, +S2. absent: JVD, Systolic Murmur - GI/Abdominal Exam GI & Abdominal Exam: Normal Bowel Sounds, Soft. absent: Distended, Guarding, Rebound, Tenderness - Extremities Exam Extremities exam: Positive for: full ROM, normal capillary refill, pedal pulses present. Negative for: calf tenderness, pedal edema Additional comments: 5.5 cm warm, tender, indurated area to R inner thigh. No fluctuance. - Neurological Exam Neurological exam: Alert, CN II-XII Intact, Oriented x3 - Psychiatric Exam Psychiatric exam: Normal Affect, Normal Mood - Skin Skin Exam: Dry, Intact, Warm Assessment and Plan - Assessment and Plan (Free Text) Assessment: Plan: 73 year old female admitted for acute PE and DVT Acute PE/Acute DVT Hx of PE/DVT CTA: Interval development of acute bilateral pulmonary emboli as above. Cardiomegaly. Heterogeneous appearance of the included inferior thyroid gland with 10 mm hypodense nodule at the left lower pole. See full report. LE duplex: Acute thrombus spheno-femoral junction, phlebitis GSV. D-dimer: 2525 EKG: NSR with nonspecific ST and T wave abnormality and prolonged QT ANGELA x1 negavitve, follow up serial ROMIs and EKGs F/u Echo Echo 2017:50% EF. Global hypokinesis of LV. Transmitral doppler flow pattern is grad I abnormal relaxation pastern. Mild-Mod AR, Trace-mild aortic regurgitation. F/U Factor 5 leiden, Lupus anticoag hexagonal, Lupus anticoag eval, antiphospholipid ab Previous negative studies [id number]: Factor 5 activity, Protein C ag, Protein S antigen, anticardiolipin IgG/A/M, and protrombin mutation coumadin 5 po 1st dose f/u INR Hx of CHF F/u Echo Furosemide 20mg PO once daily Coreg 12.5mg PO BID Lisinopril 2.5mg PO daily Hx of HTN Coreg 12.5mg PO BID Isosorbide Mononitrate 10mg PO daily Amlodipine 5mg PO daily Hx of DM Metformin 850mg BID- hold for 48 hours due to contrast Aspirin 81mg PO daily Lisinopril 2.5mg PO daily ISS-medium Hypoglycemia protocol HH/CCD Hx of HLD Crestor 2.5mg PO daily alternate for home med simvastatin Hx Gerd Pepcid 20mg PO daily PPX Pt on first dose of coumadin 5 Pepcid 20mg PO daily HH/CCD DISPO: pt to be dc home when INR >2.5 CK pgy1
[2018-12-12] MEDS: Rosuvastatin Calcium 2.5 mg Tab PO SCH (21:25)
[2018-12-13 07:18] LABS: PROTHROMBIN TIME 11.3 SECONDS (9.7-12.2)
[2018-12-13] MEDS: (Novolin R) Insulin Human Regular 100 units/ml vial SC SCH ×5 (08:02→21:30)
[2018-12-13] MEDS ORDERED: Enoxaparin 40 mg Syringe SC SCH (10:00)
[2018-12-13] MEDS: Enoxaparin 80 mg Syringe SC SCH ×2 (11:29→21:29)
--- NOTE | 2018-12-13 13:23 | CP.PCM.PN ---
Subjective - Date & Time of Evaluation Date of Evaluation: 12/13/18 Time of Evaluation: 13:23 - Subjective Subjective: HOSPITALIST SERVICE Pt s/e at bedside, denies any acute complaints overnight, no new bruising or bleeding noted, no CP SOB [place]. Pt understands she must stay for bridging therapy, agrees w/ plan Objective - Vital Signs/Intake and Output Vital Signs (last 24 hours): Temp Pulse Resp BP Pulse Ox 98.0 F 59 L 20 125/70 98 12/13/18 07:10 12/13/18 07:38 12/13/18 07:10 12/13/18 09:15 12/13/18 07:10 Intake and Output: 12/13/18 12/13/18 06:59 18:59 Intake Total 480 Balance 480 - Medications Medications: Current Medications Acetaminophen (Tylenol 325mg Tab) 650 mg PO Q6 PRN PRN Reason: Pain, moderate (4-7) Last Admin: 12/12/18 21:10 Dose: 650 mg Amlodipine Besylate (Norvasc) 5 mg PO DAILY [facility] Last Admin: 12/13/18 09:14 Dose: 5 mg Aspirin (Aspirin Chewable) 81 mg PO DAILY [facility] Last Admin: 12/13/18 09:15 Dose: 81 mg Carvedilol (Coreg) 12.5 mg PO BID [facility] Last Admin: 12/13/18 09:15 Dose: 12.5 mg Dextrose (Dextrose 50% Inj) 0 ml IV STAT PRN; Protocol PRN Reason: Hypoglycemia Protocol Dextrose (Glutose 15) 0 gm PO ONCE PRN; Protocol PRN Reason: Hypoglycemia Protocol Enoxaparin Sodium (Lovenox) 75 mg SC Q12 [facility] Last Admin: 12/13/18 11:29 Dose: 75 mg Famotidine (Pepcid) 20 mg PO DAILY [facility] Last Admin: 12/13/18 09:14 Dose: 20 mg Furosemide (Lasix) 20 mg PO DAILY [facility] Last Admin: 12/13/18 09:14 Dose: 20 mg Glucagon (Glucagen Diagnostic Kit) 0 mg IM STAT PRN; Protocol PRN Reason: Hypoglycemia Protocol Dextrose (Dextrose 5% In Water 1000 Ml) 1,000 mls @ 0 mls/hr IV .Q0M PRN; Protocol PRN Reason: Hypoglycemia Protocol Insulin Human Regular (Novolin R) 0 unit SC ACHS [facility]; Protocol Last Admin: 12/13/18 12:32 Dose: Not Given Isosorbide Mononitrate (Ismo) 10 mg PO DAILY@0630 [facility] Last Admin: 12/13/18 05:58 Dose: 10 mg Lisinopril (Zestril) 2.5 mg PO DAILY [facility] Last Admin: 12/13/18 09:14 Dose: 2.5 mg Rosuvastatin Calcium (Crestor) 2.5 mg PO HS [facility] Last Admin: 12/12/18 21:25 Dose: 2.5 mg Warfarin Sodium (Coumadin) 7.5 mg PO 1800 [facility] Stop: 12/13/18 18:01 - Labs Labs: 12/12/18 07:51 12/12/18 07:51 PT 11.3 SECONDS (9.7-12.2) 12/13/18 06:49 INR 1.0 12/13/18 06:49 APTT 32 SECONDS (21-34) 12/11/18 08:23 - Additional Findings Additional findings: - Constitutional Appears: Non-toxic, No Acute Distress - Head Exam Head Exam: ATRAUMATIC, NORMOCEPHALIC - Eye Exam Eye Exam: EOMI, Normal appearance, PERRL - ENT Exam ENT Exam: Mucous Membranes Moist - Neck Exam Neck exam: Positive for: Full Rom, Normal Inspection. Negative for: Lymphadenopathy - Respiratory Exam Respiratory Exam: Clear to Auscultation Bilateral. absent: Accessory Muscle Use, Rales, Rhonchi, Wheezes - Cardiovascular Exam Cardiovascular Exam: REGULAR RHYTHM, +S1, +S2. absent: JVD, Systolic Murmur - GI/Abdominal Exam GI & Abdominal Exam: Normal Bowel Sounds, Soft. absent: Distended, Guarding, Rebound, Tenderness - Extremities Exam Extremities exam: Positive for: full ROM, normal capillary refill, pedal pulses present. Negative for: calf tenderness, pedal edema Additional comments: 5.5 cm warm, tender, indurated area to R inner thigh. No fluctuance. - Neurological Exam Neurological exam: Alert, CN II-XII Intact, Oriented x3 - Psychiatric Exam Psychiatric exam: Normal Affect, Normal Mood - Skin Skin Exam: Dry, Intact, Warm Assessment and Plan - Assessment and Plan (Free Text) Assessment: Pt changed to inpatient for warfarin bridging therapy, pt cannot afford Eliquis, will remain on coumadin Plan: Plan: 73 year old female admitted for acute PE and DVT Acute PE/Acute DVT Hx of PE/DVT CTA: Interval development of acute bilateral pulmonary emboli as above. Cardiomegaly. Heterogeneous appearance of the included inferior thyroid gland with 10 mm hypodense nodule at the left lower pole. See full report. LE duplex: Acute thrombus spheno-femoral junction, phlebitis GSV. D-dimer: 2525 EKG: NSR with nonspecific ST and T wave abnormality and prolonged QT ANGELA x1 negavitve, follow up serial ROMIs and EKGs F/u Echo Echo 2017:50% EF. Global hypokinesis of LV. Transmitral doppler flow pattern is grad I abnormal relaxation pastern. Mild-Mod AR, Trace-mild aortic regurgitation. F/U Factor 5 leiden, Lupus anticoag hexagonal, Lupus anticoag eval, antiphospholipid ab Previous negative studies [id number]: Factor 5 activity, Protein C ag, Protein S antigen, anticardiolipin IgG/A/M, and protrombin mutation coumadin 5 po 1st dose, 2nd dose 7.5 bridging w/ lovenox 75 BID f/u INRs Hx of CHF F/u Echo Furosemide 20mg PO once daily Coreg 12.5mg PO BID Lisinopril 2.5mg PO daily Hx of HTN Coreg 12.5mg PO BID Isosorbide Mononitrate 10mg PO daily Amlodipine 5mg PO daily Hx of DM Metformin 850mg BID- hold for 48 hours due to contrast Aspirin 81mg PO daily Lisinopril 2.5mg PO daily ISS-medium Hypoglycemia protocol HH/CCD Hx of HLD Crestor 2.5mg PO daily alternate for home med simvastatin Hx Gerd Pepcid 20mg PO daily PPX Pt on first dose of coumadin 5 Pepcid 20mg PO daily HH/CCD DISPO: pt to be dc home when INR >2.5 CK pgy1
[2018-12-13] MEDS: Rosuvastatin Calcium 2.5 mg Tab PO SCH (21:29)
--- NOTE | 2018-12-13 21:49 | CARD ---
APPROVED REPORT Date of service: 12/12/2018 EXAM: Two-dimensional and M-mode echocardiogram with Doppler and color Doppler. Other Information Quality : GoodRhythm : INDICATION Congestive Heart Failure check right heart strain RISK FACTORS Hypertension Diabetes 2D DIMENSIONS IVSd1.0 (0.7-1.1cm)LVDd6.1 (3.9-5.9cm) PWd1.0 (0.7-1.1cm)LA Rfxcjl15 (18-58mL) LVDs5.3 (2.5-4.0cm)FS (%) 12.8 % LVEF (%)40.0 (>50%)IVC0.00 cm M-Mode DIMENSIONS RVDd2.90 (2.1-3.2cm)Left Atrium (MM)4.46 (2.5-4.0cm) IVSd0.93 (0.7-1.1cm)Aortic Root3.06 (2.2-3.7cm) LVDd6.54 (4.0-5.6cm)Aortic Cusp Exc.1.96 (1.5-2.0cm) PWd0.90 (0.7-1.1cm)FS (%) 21 % LVDs5.17 (2.0-3.8cm)TAPSE23.04 cm LVEF (%)42 (>50%) Aortic Valve AI P 1/2 [id number] Mitral Valve MV E Iyfnosol70.5cm/sMV A Odarynog34.4cm/sE/A ratio0.6 SKLN562.68 cm/s TDI Lateral E' Peak V7.19cm/sMedial E' Peak V3.90cm/sE/Lateral E'7.0 E/Medial E'12.9 Tricuspid Valve TR Peak Mvdbatbo391ji/sTR Peak Gr.[id number] LEFT VENTRICLE The Left Ventricle is mildly dilated. There is normal left ventricular wall thickness. The systolic function is mildly to moderately impaired. Transmitral Doppler flow pattern is abnormal. RIGHT VENTRICLE The right ventricle is normal size. ATRIA The left atrium is mildly dilated. AORTIC VALVE There is mild aortic regurgitation. MITRAL VALVE Mitral regurgitation is mild to moderate. TRICUSPID VALVE There is moderate tricuspid regurgitation. <Conclusion> Mild to moderate LV systolic dysfunction. Dilated LA and LV. Mild AR. Mild to moderate MR. Moderate TR.
[2018-12-14 07:52] LABS: INR 1.2; PROTHROMBIN TIME 12.9 SECONDS (9.7-12.2)
[2018-12-14] MEDS: (Novolin R) Insulin Human Regular 100 units/ml vial SC SCH ×4 (07:53→21:45)
[2018-12-14] MEDS: Enoxaparin 80 mg Syringe SC SCH ×2 (09:52→21:46)
--- NOTE | 2018-12-14 15:18 | CP.PCM.PN ---
Subjective - Date & Time of Evaluation Date of Evaluation: 12/14/18 Time of Evaluation: 15:16 - Subjective Subjective: HOSPITALIST SERVICE Pt s/e at bedside, denies any acute complaints overnight denies any new onset bleeding or bruising noted, denies any blood per stool/urine/sputum. denies CP SOB FC [place] Objective - Vital Signs/Intake and Output Vital Signs (last 24 hours): Temp Pulse Resp BP Pulse Ox 98.2 F 57 L 20 121/76 98 12/14/18 07:20 12/14/18 07:32 12/14/18 07:20 12/14/18 09:51 12/14/18 07:20 - Medications Medications: Current Medications Acetaminophen (Tylenol 325mg Tab) 650 mg PO Q6 PRN PRN Reason: Pain, moderate (4-7) Last Admin: 12/12/18 21:10 Dose: 650 mg Amlodipine Besylate (Norvasc) 5 mg PO DAILY [facility] Last Admin: 12/14/18 09:51 Dose: 5 mg Aspirin (Aspirin Chewable) 81 mg PO DAILY [facility] Last Admin: 12/14/18 09:51 Dose: 81 mg Carvedilol (Coreg) 12.5 mg PO BID [facility] Last Admin: 12/14/18 09:51 Dose: 12.5 mg Dextrose (Dextrose 50% Inj) 0 ml IV STAT PRN; Protocol PRN Reason: Hypoglycemia Protocol Dextrose (Glutose 15) 0 gm PO ONCE PRN; Protocol PRN Reason: Hypoglycemia Protocol Enoxaparin Sodium (Lovenox) 75 mg SC Q12 [facility] Last Admin: 12/14/18 09:52 Dose: 75 mg Famotidine (Pepcid) 20 mg PO DAILY [facility] Last Admin: 12/14/18 09:51 Dose: 20 mg Furosemide (Lasix) 20 mg PO DAILY [facility] Last Admin: 12/14/18 09:51 Dose: 20 mg Glucagon (Glucagen Diagnostic Kit) 0 mg IM STAT PRN; Protocol PRN Reason: Hypoglycemia Protocol Dextrose (Dextrose 5% In Water 1000 Ml) 1,000 mls @ 0 mls/hr IV .Q0M PRN; Protocol PRN Reason: Hypoglycemia Protocol Insulin Human Regular (Novolin R) 0 unit SC ACHS [facility]; Protocol Last Admin: 12/14/18 12:10 Dose: 3 units Isosorbide Mononitrate (Ismo) 10 mg PO DAILY@0630 [facility] Last Admin: 12/14/18 05:48 Dose: 10 mg Lisinopril (Zestril) 2.5 mg PO DAILY [facility] Last Admin: 12/14/18 09:51 Dose: 2.5 mg Rosuvastatin Calcium (Crestor) 2.5 mg PO HS [facility] Last Admin: 12/13/18 21:29 Dose: 2.5 mg Warfarin Sodium (Coumadin) 7.5 mg PO 1800 [facility] Stop: 12/14/18 18:01 - Labs Labs: 12/12/18 07:51 12/12/18 07:51 PT 12.9 SECONDS (9.7-12.2) H 12/14/18 07:28 INR 1.2 12/14/18 07:28 APTT 32 SECONDS (21-34) 12/11/18 08:23 - Additional Findings Additional findings: - Constitutional Appears: Non-toxic, No Acute Distress - Head Exam Head Exam: ATRAUMATIC, NORMOCEPHALIC - Eye Exam Eye Exam: EOMI, Normal appearance, PERRL - ENT Exam ENT Exam: Mucous Membranes Moist - Neck Exam Neck exam: Positive for: Full Rom, Normal Inspection. Negative for: Lymphadenopathy - Respiratory Exam Respiratory Exam: Clear to Auscultation Bilateral. absent: Accessory Muscle Use, Rales, Rhonchi, Wheezes - Cardiovascular Exam Cardiovascular Exam: REGULAR RHYTHM, +S1, +S2. absent: JVD, Systolic Murmur - GI/Abdominal Exam GI & Abdominal Exam: Normal Bowel Sounds, Soft. absent: Distended, Guarding, Rebound, Tenderness - Extremities Exam Extremities exam: Positive for: full ROM, normal capillary refill, pedal pulses present. Negative for: calf tenderness, pedal edema Additional comments: 5.5 cm warm, tender, indurated area to R inner thigh. No fluctuance. - Neurological Exam Neurological exam: Alert, CN II-XII Intact, Oriented x3 - Psychiatric Exam Psychiatric exam: Normal Affect, Normal Mood - Skin Skin Exam: Dry, Intact, Warm Assessment and Plan - Assessment and Plan (Free Text) Assessment: 73 year old female admitted for acute PE and DVT Acute PE/Acute DVT Hx of PE/DVT CTA: Interval development of acute bilateral pulmonary emboli as above. Cardiomegaly. Heterogeneous appearance of the included inferior thyroid gland with 10 mm hypodense nodule at the left lower pole. See full report. LE duplex: Acute thrombus spheno-femoral junction, phlebitis GSV. D-dimer: 2525 EKG: NSR with nonspecific ST and T wave abnormality and prolonged QT ANGELA x1 negavitve, follow up serial ROMIs and EKGs F/u Echo Echo 2017:50% EF. Global hypokinesis of LV. Transmitral doppler flow pattern is grad I abnormal relaxation pastern. Mild-Mod AR, Trace-mild aortic regurgitation. F/U Factor 5 leiden, Lupus anticoag hexagonal, Lupus anticoag eval, antiphospho lipid ab Previous negative studies [id number]: Factor 5 activity, Protein C ag, Protein S antigen, anticardiolipin IgG/A/M, and protrombin mutation coumadin 5 po 1st dose, 2nd dose 7.5, 3rd dose 7.5 bridging w/ lovenox 75 BID f/u INRs: today 1.2 Hx of CHF F/u Echo Furosemide 20mg PO once daily Coreg 12.5mg PO BID Lisinopril 2.5mg PO daily Hx of HTN Coreg 12.5mg PO BID Isosorbide Mononitrate 10mg PO daily Amlodipine 5mg PO daily Hx of DM Metformin 850mg BID- hold for 48 hours due to contrast Aspirin 81mg PO daily Lisinopril 2.5mg PO daily ISS-medium Hypoglycemia protocol HH/CCD Hx of HLD Crestor 2.5mg PO daily alternate for home med simvastatin Hx Gerd Pepcid 20mg PO daily PPX Pt on first dose of coumadin 5 Pepcid 20mg PO daily HH/CCD DISPO: pt to be dc home when INR >2 CK pgy1
[2018-12-14] MEDS: Rosuvastatin Calcium 2.5 mg Tab PO SCH (21:46)
[2018-12-15 07:34] LABS: HEMOGLOBIN 11.7 g/dL (11.0-16.0); MEAN CELL VOLUME 85.3 fL (81.0-99.0); MEAN CORPUSCULAR HEMOGLOBIN 27.6 pg (27.0-31.0); MEAN CORPUSCULAR HGB CONC 32.3 g/dL (33.0-37.0); MEAN PLATELET VOLUME 8.2 fL (7.2-11.7); RBC 4.25 Mil/uL (3.80-5.20); RED CELL DISTRIBUTION WIDTH 14.5 % (11.5-14.5)
[2018-12-15 07:49] LABS: INR 1.3; PROTHROMBIN TIME 14.4 SECONDS (9.7-12.2)
[2018-12-15 07:55] LABS: BLOOD UREA NITROGEN 27 mg/dL (7-17); CALCIUM 8.9 mg/dl (8.6-10.4); GFR NON-AFRICAN AMERICAN 55
[2018-12-15] MEDS: (Novolin R) Insulin Human Regular 100 units/ml vial SC SCH ×4 (08:00→22:12)
--- NOTE | 2018-12-15 09:27 | CP.PCM.PN ---
<Adalberto Ram - Last Filed: 12/15/18 13:38> Subjective - Date & Time of Evaluation Date of Evaluation: 12/15/18 Time of Evaluation: 09:21 - Subjective Subjective: HOSPITALIST SERVICE Pt s/e at bedside, denies any acute events overnight, eager to go home once INR in therapeutic range. Denies CP SOB FC NV, new bleeding/bruising, dizziness. Pt comfortable, understands and agrees with plan Objective - Vital Signs/Intake and Output Vital Signs (last 24 hours): Temp Pulse Resp BP Pulse Ox 98.1 F 65 20 124/63 98 12/15/18 07:02 12/15/18 07:02 12/15/18 07:02 12/15/18 07:02 12/15/18 07:02 Intake and Output: 12/15/18 12/15/18 06:59 18:59 Intake Total 10 Balance 10 - Medications Medications: Current Medications Acetaminophen (Tylenol 325mg Tab) 650 mg PO Q6 PRN PRN Reason: Pain, moderate (4-7) Last Admin: 12/12/18 21:10 Dose: 650 mg Amlodipine Besylate (Norvasc) 5 mg PO DAILY [facility] Last Admin: 12/14/18 09:51 Dose: 5 mg Aspirin (Aspirin Chewable) 81 mg PO DAILY [facility] Last Admin: 12/14/18 09:51 Dose: 81 mg Carvedilol (Coreg) 12.5 mg PO BID [facility] Last Admin: 12/14/18 17:06 Dose: 12.5 mg Dextrose (Dextrose 50% Inj) 0 ml IV STAT PRN; Protocol PRN Reason: Hypoglycemia Protocol Dextrose (Glutose 15) 0 gm PO ONCE PRN; Protocol PRN Reason: Hypoglycemia Protocol Enoxaparin Sodium (Lovenox) 75 mg SC Q12 [facility] Last Admin: 12/14/18 21:46 Dose: 75 mg Famotidine (Pepcid) 20 mg PO DAILY [facility] Last Admin: 12/14/18 09:51 Dose: 20 mg Furosemide (Lasix) 20 mg PO DAILY [facility] Last Admin: 12/14/18 09:51 Dose: 20 mg Glucagon (Glucagen Diagnostic Kit) 0 mg IM STAT PRN; Protocol PRN Reason: Hypoglycemia Protocol Insulin Human Regular (Novolin R) 0 unit SC [facility]; Protocol Last Admin: 12/15/18 08:00 Dose: Not Given Isosorbide Mononitrate (Ismo) 10 mg PO DAILY@0630 [facility] Last Admin: 12/15/18 05:41 Dose: 10 mg Lisinopril (Zestril) 2.5 mg PO DAILY [facility] Last Admin: 12/14/18 09:51 Dose: 2.5 mg Rosuvastatin Calcium (Crestor) 2.5 mg PO HS [facility] Last Admin: 12/14/18 21:46 Dose: 2.5 mg Warfarin Sodium (Coumadin) 7.5 mg PO 1800 [facility] Stop: 12/15/18 18:01 - Labs Labs: 12/15/18 07:30 12/15/18 07:30 PT 14.4 SECONDS (9.7-12.2) H 12/15/18 07:30 INR 1.3 12/15/18 07:30 APTT 32 SECONDS (21-34) 12/11/18 08:23 - Additional Findings Additional findings: - Constitutional Appears: Non-toxic, No Acute Distress - Head Exam Head Exam: ATRAUMATIC, NORMOCEPHALIC - Eye Exam Eye Exam: EOMI, Normal appearance, PERRL - ENT Exam ENT Exam: Mucous Membranes Moist - Neck Exam Neck exam: Positive for: Full Rom, Normal Inspection. Negative for: Lymphadenopathy - Respiratory Exam Respiratory Exam: Clear to Auscultation Bilateral. absent: Accessory Muscle Use, Rales, Rhonchi, Wheezes - Cardiovascular Exam Cardiovascular Exam: REGULAR RHYTHM, +S1, +S2. absent: JVD, Systolic Murmur - GI/Abdominal Exam GI & Abdominal Exam: Normal Bowel Sounds, Soft. absent: Distended, Guarding, Rebound, Tenderness - Extremities Exam Extremities exam: Positive for: full ROM, normal capillary refill, pedal pulses present. Negative for: calf tenderness, pedal edema Additional comments: 5.5 cm warm, tender, indurated area to R inner thigh. No fluctuance. - Neurological Exam Neurological exam: Alert, CN II-XII Intact, Oriented x3 - Psychiatric Exam Psychiatric exam: Normal Affect, Normal Mood - Skin Skin Exam: Dry, Intact, Warm Assessment and Plan - Assessment and Plan (Free Text) Assessment: 73 year old female admitted for acute PE and DVT Acute PE/Acute DVT Hx of PE/DVT CTA: Interval development of acute bilateral pulmonary emboli as above. Cardiomegaly. Heterogeneous appearance of the included inferior thyroid gland with 10 mm hypodense nodule at the left lower pole. See full report. LE duplex: Acute thrombus spheno-femoral junction, phlebitis GSV. D-dimer: 2525 EKG: NSR with nonspecific ST and T wave abnormality and prolonged QT ANGELA x1 negavitve, follow up serial ROMIs and EKGs F/u Echo Echo 2017:50% EF. Global hypokinesis of LV. Transmitral doppler flow pattern is grad I abnormal relaxation pastern. Mild-Mod AR, Trace-mild aortic regurgitation. F/U Factor 5 leiden, Lupus anticoag hexagonal, Lupus anticoag eval, antiphospholipid ab Previous negative studies [id number]: Factor 5 activity, Protein C ag, Protein S antigen, anticardiolipin IgG/A/M, and protrombin mutation coumadin 5 po 1st dose, 2nd dose 7.5, 3rd dose 7.5 bridging w/ lovenox 75 BID f/u INRs: today 1.3 Hx of CHF Echo: EF 40% Furosemide 20mg PO once daily Coreg 12.5mg PO BID Lisinopril 2.5mg PO daily Hx of HTN Coreg 12.5mg PO BID Isosorbide Mononitrate 10mg PO daily Amlodipine 5mg PO daily Hx of DM Metformin 850mg BID- hold for 48 hours due to contrast Aspirin 81mg PO daily Lisinopril 2.5mg PO daily ISS-medium Hypoglycemia protocol HH/CCD Hx of HLD Crestor 2.5mg PO daily alternate for home med simvastatin Hx Gerd Pepcid 20mg PO daily PPX Pt on first dose of coumadin 5 Pepcid 20mg PO daily HH/CCD -Dietary consulted for coumadin diet education DISPO: pt to be dc home when INR >2 CK pgy1 <Nguyễn Arevalo - Last Filed: 12/16/18 14:48> Objective - Vital Signs/Intake and Output Vital Signs (last 24 hours): Temp Pulse Resp BP Pulse Ox 98.0 F 60 20 109/57 L 100 12/16/18 07:00 12/16/18 09:39 12/16/18 07:00 12/16/18 10:59 12/16/18 07:00 Intake and Output: 12/16/18 12/16/18 06:59 18:59 Intake Total 100 Balance 100 - Medications Medications: Current Medications Acetaminophen (Tylenol 325mg Tab) 650 mg PO Q6 PRN PRN Reason: Pain, moderate (4-7) Last Admin: 12/12/18 21:10 Dose: 650 mg Amlodipine Besylate (Norvasc) 5 mg PO DAILY [facility] Last Admin: 12/16/18 09:36 Dose: 5 mg Aspirin (Aspirin Chewable) 81 mg PO DAILY [facility] Last Admin: 12/16/18 09:35 Dose: 81 mg Carvedilol (Coreg) 12.5 mg PO BID [facility] Last Admin: 12/16/18 10:59 Dose: Not Given Dextrose (Dextrose 50% Inj) 0 ml IV STAT PRN; Protocol PRN Reason: Hypoglycemia Protocol Dextrose (Glutose 15) 0 gm PO ONCE PRN; Protocol PRN Reason: Hypoglycemia Protocol Enoxaparin Sodium (Lovenox) 75 mg SC Q12 [facility] Last Admin: 12/16/18 09:35 Dose: 75 mg Famotidine (Pepcid) 20 mg PO DAILY [facility] Last Admin: 12/16/18 09:35 Dose: 20 mg Furosemide (Lasix) 20 mg PO DAILY [facility] Last Admin: 12/16/18 10:59 Dose: Not Given Glucagon (Glucagen Diagnostic Kit) 0 mg IM STAT PRN; Protocol PRN Reason: Hypoglycemia Protocol Insulin Human Regular (Novolin R) 0 unit SC [facility]; Protocol Last Admin: 12/16/18 11:46 Dose: Not Given Isosorbide Mononitrate (Ismo) 10 mg PO DAILY@0630 [facility] Last Admin: 12/16/18 06:08 Dose: 10 mg Lisinopril (Zestril) 2.5 mg PO DAILY [facility] Last Admin: 12/16/18 09:36 Dose: 2.5 mg Metformin HCl (Glucophage) 1,000 mg PO BIDCC [facility] Last Admin: 12/16/18 07:55 Dose: 1,000 mg Rosuvastatin Calcium (Crestor) 2.5 mg PO HS [facility] Last Admin: 12/15/18 21:15 Dose: 2.5 mg Warfarin Sodium (Coumadin) 5 mg PO 1800 [facility] Stop: 12/16/18 18:01 - Labs Labs: 12/16/18 07:46 12/16/18 07:46 PT 18.4 SECONDS (9.7-12.2) H 12/16/18 07:46 INR 1.7 12/16/18 07:46 APTT 32 SECONDS (21-34) 12/11/18 08:23 Attending/Attestation - Attestation I have personally seen and examined this patient.: Yes I have fully participated in the care of the patient.: Yes I have reviewed all pertinent clinical information, including history, physical exam and plan: Yes Notes (Text): 12/16/18 14:47 This is a late entry. Care of this patient was gone over in detail with Dr. Ram. Please note that the patient is currently getting 7.5 mg of Coumadin and we are awaiting INR to be therapeutic. Nguyễn Arevalo D.O.
[2018-12-15] MEDS: Enoxaparin 80 mg Syringe SC SCH ×2 (09:39→21:15)
[2018-12-15] MEDS ORDERED: Simethicone 80 mg Chewtab PO ONE (19:40)
[2018-12-15] MEDS: Rosuvastatin Calcium 2.5 mg Tab PO SCH (21:15)
--- NOTE | 2018-12-16 02:40 | CP.PCM.PN ---
<Jorge Roberts - Last Filed: 12/16/18 03:26> Subjective - Date & Time of Evaluation Date of Evaluation: 12/16/18 Time of Evaluation: 05:00 - Subjective Subjective: PGY-[address] Jaycob Arevalo service Patient is seen and examined at bedside. Patient admits to epigastric discomfort, as well as feeling bloated, patient states she has gas. Patient denies fever, chills, chest pain, sob, dizziness, weakness, n/v/d/c or bl eeding/bruising. Objective - Vital Signs/Intake and Output Vital Signs (last 24 hours): Temp Pulse Resp BP Pulse Ox 98.0 F 60 20 118/68 94 L 12/15/18 23:11 12/15/18 23:11 12/15/18 23:11 12/15/18 23:11 12/15/18 23:11 - Medications Medications: Current Medications Acetaminophen (Tylenol 325mg Tab) 650 mg PO Q6 PRN PRN Reason: Pain, moderate (4-7) Last Admin: 12/12/18 21:10 Dose: 650 mg Amlodipine Besylate (Norvasc) 5 mg PO DAILY [facility] Last Admin: 12/15/18 09:38 Dose: 5 mg Aspirin (Aspirin Chewable) 81 mg PO DAILY [facility] Last Admin: 12/15/18 09:38 Dose: 81 mg Carvedilol (Coreg) 12.5 mg PO BID [facility] Last Admin: 12/15/18 18:07 Dose: 12.5 mg Dextrose (Dextrose 50% Inj) 0 ml IV STAT PRN; Protocol PRN Reason: Hypoglycemia Protocol Dextrose (Glutose 15) 0 gm PO ONCE PRN; Protocol PRN Reason: Hypoglycemia Protocol Enoxaparin Sodium (Lovenox) 75 mg SC Q12 [facility] Last Admin: 12/15/18 21:15 Dose: 75 mg Famotidine (Pepcid) 20 mg PO DAILY [facility] Last Admin: 12/15/18 09:38 Dose: 20 mg Furosemide (Lasix) 20 mg PO DAILY [facility] Last Admin: 12/15/18 09:38 Dose: 20 mg Glucagon (Glucagen Diagnostic Kit) 0 mg IM STAT PRN; Protocol PRN Reason: Hypoglycemia Protocol Insulin Human Regular (Novolin R) [address] [facility]; Protocol Last Admin: 12/15/18 22:12 Dose: Not Given Isosorbide Mononitrate (Ismo) 10 mg PO DAILY@0630 [facility] Last Admin: 12/15/18 05:41 Dose: 10 mg Lisinopril (Zestril) 2.5 mg PO DAILY [facility] Last Admin: 12/15/18 09:38 Dose: 2.5 mg Metformin HCl (Glucophage) 1,000 mg PO BIDCC [facility] Last Admin: 12/15/18 18:00 Dose: 1,000 mg Rosuvastatin Calcium (Crestor) 2.5 mg PO HS [facility] Last Admin: 12/15/18 21:15 Dose: 2.5 mg - Labs Labs: 12/15/18 07:30 12/15/18 07:30 PT 14.4 SECONDS (9.7-12.2) H 12/15/18 07:30 INR 1.3 12/15/18 07:30 APTT 32 SECONDS (21-34) 12/11/18 08:23 - Constitutional Appears: Non-toxic, No Acute Distress - Head Exam Head Exam: ATRAUMATIC, NORMAL INSPECTION, NORMOCEPHALIC - Eye Exam Eye Exam: EOMI, Normal appearance - ENT Exam ENT Exam: Mucous Membranes Moist - Neck Exam Neck Exam: Full ROM - Respiratory Exam Respiratory Exam: Clear to Ausculation Bilateral, NORMAL BREATHING PATTERN. absent: Rales, Rhonchi, Wheezes - Cardiovascular Exam Cardiovascular Exam: REGULAR RHYTHM, +S1, +S2 - Extremities Exam Extremities Exam: Full ROM, Normal Inspection Additional comments: varicose veins left and right LE, nontender to palpation. - Back Exam Back Exam: NORMAL INSPECTION - Neurological Exam Neurological Exam: Alert, Awake, Oriented x3 - Psychiatric Exam Psychiatric exam: Normal Affect, Normal Mood - Skin Skin Exam: Dry, Normal Color, Warm Assessment and Plan - Assessment and Plan (Free Text) Assessment: 73 year old female admitted for acute PE and DVT, on coumadin, bridging w lovenox, awaiting INR goal of more than 1.2 Plan: Hx of PE/DVT CTA: Interval development of acute bilateral pulmonary emboli as above. Cardiomegaly. Heterogeneous appearance of the included inferior thyroid gland with 10 mm hypodense nodule at the left lower pole. See full report. LE duplex: Acute thrombus spheno-femoral junction, phlebitis GSV. D-dimer: 2525 EKG: NSR with nonspecific ST and T wave abnormality and prolonged QT ANGELA x3 negative F/u Echo - midl to mod LV systolic dysfunction, dilated LA and LV Echo 2017:50% EF. Global hypokinesis of LV. Transmitral doppler flow pattern is grad I abnormal relaxation pastern. Mild-Mod AR, Trace-mild aortic regurgitation. F/U Factor 5 leiden, Lupus anticoag hexagonal, Lupus anticoag eval, antiphospholipid ab Previous negative studies [id number]: Factor 5 activity, Protein C ag, Protein S antigen, anticardiolipin IgG/A/M, and protrombin mutation coumadin 5 po 1st dose, 2nd dose 7.5, 3rd dose 7.5 bridging w/ lovenox 75 BID f/u INRs - previous 1.2 - follow up morning levels Hx of CHF Echo: EF 40% Furosemide 20mg PO once daily Coreg 12.5mg PO BID Lisinopril 2.5mg PO daily Hx of HTN Coreg 12.5mg PO BID Isosorbide Mononitrate 10mg PO daily Amlodipine 5mg PO daily Hx of DM Metformin 850mg BIDCC Aspirin 81mg PO daily Lisinopril 2.5mg PO daily ISS-medium Hypoglycemia protocol HH/CCD Hx of HLD Crestor 2.5mg PO daily alternate for home med simvastatin Hx Gerd Pepcid 20mg PO daily PPX Pt on coumadin, bridging with lovenox Pepcid 20mg PO daily HH/CCD -Dietary consulted for coumadin diet education DISPO: pt to be dc home when INR >2 Jorge Roberts PGY-1 <Nguyễn Arevalo - Last Filed: 12/16/18 14:47> Objective - Vital Signs/Intake and Output Vital Signs (last 24 hours): Temp Pulse Resp BP Pulse Ox 98.0 F 60 20 109/57 L 100 12/16/18 07:00 12/16/18 09:39 12/16/18 07:00 12/16/18 10:59 12/16/18 07:00 Intake and Output: 12/16/18 12/16/18 06:59 18:59 Intake Total 100 Balance 100 - Medications Medications: Current Medications Acetaminophen (Tylenol 325mg Tab) 650 mg PO Q6 PRN PRN Reason: Pain, moderate (4-7) Last Admin: 12/12/18 21:10 Dose: 650 mg Amlodipine Besylate (Norvasc) 5 mg PO DAILY [facility] Last Admin: 12/16/18 09:36 Dose: 5 mg Aspirin (Aspirin Chewable) 81 mg PO DAILY [facility] Last Admin: 12/16/18 09:35 Dose: 81 mg Carvedilol (Coreg) 12.5 mg PO BID [facility] Last Admin: 12/16/18 10:59 Dose: Not Given Dextrose (Dextrose 50% Inj) 0 ml IV STAT PRN; Protocol PRN Reason: Hypoglycemia Protocol Dextrose (Glutose 15) 0 gm PO ONCE PRN; Protocol PRN Reason: Hypoglycemia Protocol Enoxaparin Sodium (Lovenox) 75 mg SC Q12 [facility] Last Admin: 12/16/18 09:35 Dose: 75 mg Famotidine (Pepcid) 20 mg PO DAILY [facility] Last Admin: 12/16/18 09:35 Dose: 20 mg Furosemide (Lasix) 20 mg PO DAILY [facility] Last Admin: 12/16/18 10:59 Dose: Not Given Glucagon (Glucagen Diagnostic Kit) 0 mg IM STAT PRN; Protocol PRN Reason: Hypoglycemia Protocol Insulin Human Regular (Novolin R) 0 unit SC [facility]; Protocol Last Admin: 12/16/18 11:46 Dose: Not Given Isosorbide Mononitrate (Ismo) 10 mg PO DAILY@0630 [facility] Last Admin: 12/16/18 06:08 Dose: 10 mg Lisinopril (Zestril) 2.5 mg PO DAILY [facility] Last Admin: 12/16/18 09:36 Dose: 2.5 mg Metformin HCl (Glucophage) 1,000 mg PO BIDCC [facility] Last Admin: 12/16/18 07:55 Dose: 1,000 mg Rosuvastatin Calcium (Crestor) 2.5 mg PO HS [facility] Last Admin: 12/15/18 21:15 Dose: 2.5 mg Warfarin Sodium (Coumadin) 5 mg PO 1800 [facility] Stop: 12/16/18 18:01 - Labs Labs: 12/16/18 07:46 12/16/18 07:46 PT 18.4 SECONDS (9.7-12.2) H 12/16/18 07:46 INR 1.7 12/16/18 07:46 APTT 32 SECONDS (21-34) 12/11/18 08:23 Attending/Attestation - Attestation I have personally seen and examined this patient.: Yes I have fully participated in the care of the patient.: Yes I have reviewed all pertinent clinical information, including history, physical exam and plan: Yes Notes (Text): 12/16/18 14:45 Patient was seen and examined at 1:30 PM 12/16/18 Care of this patient was gone over with resident Dr. Roberts. Patient was been provided with information for Coumadin Diet by [employer] in Somali and information was provided in Somali Coumadin 5 mg PO x 1 dose tonight. Hopefully discharge 01/16/19. Nguyễn Arevalo D.O.
[2018-12-16] MEDS: (Novolin R) Insulin Human Regular 100 units/ml vial SC SCH ×4 (07:31→22:20)
[2018-12-16 07:53] LABS: HEMOGLOBIN 11.6 g/dL (11.0-16.0); MEAN CELL VOLUME 85.7 fL (81.0-99.0); MEAN CORPUSCULAR HEMOGLOBIN 27.7 pg (27.0-31.0); MEAN CORPUSCULAR HGB CONC 32.3 g/dL (33.0-37.0); MEAN PLATELET VOLUME 7.9 fL (7.2-11.7); RBC 4.19 Mil/uL (3.80-5.20); RED CELL DISTRIBUTION WIDTH 14.6 % (11.5-14.5); WHITE BLOOD COUNT 6.1 K/uL (4.8-10.8)
[2018-12-16 08:04] LABS: CALCIUM 8.8 mg/dl (8.6-10.4); INR 1.7; PROTHROMBIN TIME 18.4 SECONDS (9.7-12.2)
[2018-12-16] MEDS: Enoxaparin 80 mg Syringe SC SCH ×2 (09:35→21:50)
--- NOTE | 2018-12-16 19:32 | CARD ---
APPROVED REPORT Date of service: 12/11/2018 EKG Measurement Heart [id number] <Conclusion> Normal sinus rhythm Nonspecific ST and T wave abnormality Prolonged QT Abnormal ECG
[2018-12-16] MEDS: Rosuvastatin Calcium 2.5 mg Tab PO SCH (21:50)
[2018-12-17 01:13] VITALS: TEMP 98
[2018-12-17 05:34] LABS: CARDIOLIPIN AB (IGA) <11 APL (<=11); CARDIOLIPIN AB (IGG) <14 GPL (<=14)
[2018-12-17 06:21] LABS: B2 GLYCOPROTEIN I AB(IGA) <9 SAU (<=20); B2 GLYCOPROTEIN I AB(IGG) <9 SGU (<=20); B2 GLYCOPROTEIN I AB(IGM) <9 SMU (<=20)
[2018-12-17 07:02] LABS: CARDIOLIPIN AB (IGM) <12 MPL (<=12); PHOSPHATIDYLSERINE AB IGA <20 U/mL (<20); PHOSPHATIDYLSERINE AB IGG <10 U/mL (<10); PHOSPHATIDYLSERINE AB IGM <25 U/mL (<25)
[2018-12-17 07:45] VITALS: PULSE 54; RESP 20; O2SAT 99
[2018-12-17 08:22] LABS: HEMOGLOBIN 11.8 g/dL (11.0-16.0); MEAN CELL VOLUME 85.1 fL (81.0-99.0); MEAN CORPUSCULAR HEMOGLOBIN 27.6 pg (27.0-31.0); MEAN CORPUSCULAR HGB CONC 32.5 g/dL (33.0-37.0); MEAN PLATELET VOLUME 7.9 fL (7.2-11.7); RBC 4.26 Mil/uL (3.80-5.20); RED CELL DISTRIBUTION WIDTH 14.8 % (11.5-14.5); WHITE BLOOD COUNT 6.1 K/uL (4.8-10.8)
[2018-12-17 08:24] LABS: INR 2.1; PROTHROMBIN TIME 23.3 SECONDS (9.7-12.2)
[2018-12-17] MEDS: (Novolin R) Insulin Human Regular 100 units/ml vial SC SCH ×2 (08:30→11:30)
[2018-12-17 08:33] LABS: BLOOD UREA NITROGEN 30 mg/dL (7-17); CALCIUM 9.2 mg/dl (8.6-10.4); GFR NON-AFRICAN AMERICAN 55
--- NOTE | 2018-12-17 08:38 | CP.PCM.DIS ---
Provider - Provider Date of Admission: 12/13/18 13:25 Attending physician: Lanie Yanes DO Consults: 12/11/18 13:08 Critical Care Consult Stat Comment: Consulting Provider: Rut Noel Consulting Physician: Rut Noel Reason for Consult: bilateral pe Time Spent in preparation of Discharge (in minutes): 35 Diagnosis - Discharge Diagnosis (1) Pulmonary embolus Status: Acute (2) DVT (deep venous thrombosis) Status: Acute Hospital Course - Lab Results Lab Results: Most Recent Lab Values WBC 6.1 K/uL (4.8-10.8) 12/17/18 08:15 RBC 4.26 Mil/uL (3.80-5.20) 12/17/18 08:15 Hgb 11.8 g/dL (11.0-16.0) 12/17/18 08:15 Hct 36.3 % (34.0-47.0) 12/17/18 08:15 MCV 85.1 fL (81.0-99.0) 12/17/18 08:15 MCH 27.6 pg (27.0-31.0) 12/17/18 08:15 MCHC 32.5 g/dL (33.0-37.0) L 12/17/18 08:15 RDW 14.8 % (11.5-14.5) H 12/17/18 08:15 Plt Count 364 K/uL (130-400) 12/17/18 08:15 MPV 7.9 fL (7.2-11.7) 12/17/18 08:15 Neut % (Auto) 50.9 % (50.0-75.0) 12/12/18 07:51 Lymph % (Auto) 37.0 % (20.0-40.0) 12/12/18 07:51 Coos % (Auto) 8.5 % (0.0-10.0) 12/12/18 07:51 Eos % (Auto) 2.7 % (0.0-4.0) 12/12/18 07:51 Baso % (Auto) 0.9 % (0.0-2.0) 12/12/18 07:51 Neut # (Auto) 3.1 K/uL (1.8-7.0) 12/12/18 07:51 Lymph # (Auto) 2.3 K/uL (1.0-4.3) 12/12/18 07:51 Coos # (Auto) 0.5 K/uL (0.0-0.8) 12/12/18 07:51 Eos # (Auto) 0.2 K/uL (0.0-0.7) 12/12/18 07:51 Baso # (Auto) 0.1 K/uL (0.0-0.2) 12/12/18 07:51 PT 23.3 SECONDS (9.7-12.2) H 12/17/18 08:15 INR 2.1 12/17/18 08:15 APTT 32 SECONDS (21-34) 12/11/18 08:23 Hexagonal Phase Confirm Negative (Negative) 12/11/18 16:00 Factor V see note 12/11/18 16:04 Sodium 140 mmol/L (132-148) 12/17/18 08:15 Potassium 4.5 mmol/L (3.6-5.2) 12/17/18 08:15 Chloride 105 mmol/L (98-107) 12/17/18 08:15 Carbon Dioxide 29 mmol/L (22-30) 12/17/18 08:15 Anion Gap 10 (10-20) 12/17/18 08:15 BUN 30 mg/dL (7-17) H 12/17/18 08:15 Creatinine 1.0 mg/dL (0.7-1.2) 12/17/18 08:15 Est GFR ( Amer) > 60 12/17/18 08:15 Est GFR (Non-Af Amer) 55 12/17/18 08:15 POC Glucose (mg/dL) 101 mg/dL (65-110) 12/16/18 22:05 Random Glucose 104 mg/dL (65-105) 12/17/18 08:15 Calcium 9.2 mg/dl (8.6-10.4) 12/17/18 08:15 Phosphorus 3.9 mg/dL (2.5-4.5) 12/12/18 07:51 Magnesium 1.7 mg/dL (1.6-2.3) 12/12/18 07:51 Total Bilirubin 0.7 mg/dL (0.2-1.3) 12/12/18 07:51 AST 24 U/L (14-36) 12/12/18 07:51 ALT 9 U/L (9-52) D 12/12/18 07:51 Alkaline Phosphatase 61 U/L (38-126) 12/12/18 07:51 Total Creatine Kinase 47 U/L (30-135) 12/12/18 07:51 CK-MB (Mass) 0.36 ng/mL (0.0-3.38) 12/12/18 07:51 Troponin I 0.0150 ng/mL (0.00-0.120) 12/12/18 07:51 Total Protein 7.1 g/dL (6.3-8.3) 12/12/18 07:51 Albumin 3.8 g/dL (3.5-5.0) 12/12/18 07:51 Globulin 3.2 gm/dL (2.2-3.9) 12/12/18 07:51 Albumin/Globulin Ratio 1.2 (1.0-2.1) 12/12/18 07:51 [id number] Ab <9 KAMINI (<=20) 12/11/18 16:00 Beta-2 GPI IgG Ab <9 SGU (<=20) 12/11/18 16:00 Beta-2 GPI IgM Ab <9 SMU (<=20) 12/11/18 16:00 Phosphatidylserine IgG <10 U/mL (<10) 12/11/18 16:00 Phosphatidylserine IgA <20 U/mL (<20) 12/11/18 16:00 Phosphatidylserine IgM <25 U/mL (<25) 12/11/18 16:00 Anti-Phospholipid Intrp see note 12/11/18 16:00 Anti-Cardiolipin IgG Ab <14 GPL (<=14) 12/11/18 16:00 Anti-Cardiolipin IgA Ab <11 APL (<=11) 12/11/18 16:00 Anti-Cardiolipin IgM Ab <12 MPL (<=12) 12/11/18 16:00 - Hospital Course Hospital Course: On admission: Patient is a 73 y/o female with PMhx of HTN, DM, CHF, and hx of DVT and PE with IVC placement presented to the ED complaining of a painful area on her right thigh that has been gradually worsening for the past 2 weeks. She states the area is firm and hot and eventually enlarged and became more painful. She used ointments and pain killers for the pain but they did not help. She also reports mild shortness of breath for the last few days. Prior to onset of symptoms 2 weeks ago, patient states she took a 3 [address] ride to [place] and 3 hours back without stopping to rest or stretch. Patient presented to the ED on 12/09 and 12/10/18 for this R thigh pain and received Lovenox injections for elevated D-dimer, a script for Keflex and instructed to return today for LE doppler. Patient denies fever, chills, palpitations, chest pain, diaphoresis, numbness, tingling, any trauma or use of razors in the area. Patient has previous history of DVT and PE, and had been on Warfarin for 3 years, which was discontinued on 10/25/18 after negative CTA and LE dupplex studies as well as negative Prothrombin mutation, anticardioliping Ig, Factor 5, and Protein C/S blood work. Hospital Course: Patient was admitted for acute PE and DVT. CTA: Interval development of acute bilateral pulmonary emboli as above. Cardiomegaly. Heterogeneous appearance of the included inferior thyroid gland with 10 mm hypodense nodule at the left lower pole. See full report. LE duplex: Acute thrombus spheno-femoral junction, phlebitis GSV. EKG: NSR with nonspecific ST and T wave abnormality and prolonged QT Echo showed EF of 40% (See full report) ANGELA x3 negative Patient was started on lovenox 75mg BID and bridged to warfarin until INR >2. Dietary was consulted for coumadin diet education. Discharge instructions: Patient is stable for discharge as per Dr. Arevalo. You will need to follow up with your primary care doctor, Dr. Rose at the [facility] in Floor [address] of [facility] within 7 days. Call [phone] to make an appointment. You must have your INR remeasured. Follow the recommendations of the Coumadin diet that you were instructed on and a copy provide to you in [place]. You are on medication that can cause bleeding. Be careful with falls, bruising, and going up and down the stairs. You will receive scripts for the following medications: amlodipine 5mg once daily at 8AM #30 Metformin 1000mg one tab twice a day at 8AM and 8PM #60 isosorbidde mononitrate 10mg once daily at 8PM #30 Furosemide 20 mg PO daily at 2PM #30 Carvedilol 12.5 mg PO twice a day at 8AM and 8PM #60 Simvastating 5mg daily at 8PM #30 Aspirin 81mg once daily at 8AM #30 Warfarin 5mg , 1 tab PO 1x per day 6PM #30 Lisinopril 2.5mg once a day at 2 PM #30 Discharge Exam - Head Exam Head Exam: ATRAUMATIC, NORMAL INSPECTION, NORMOCEPHALIC - Eye Exam Eye Exam: EOMI, Normal appearance, PERRL - ENT Exam ENT Exam: Mucous Membranes Moist, Normal Exam - Neck Exam Neck exam: Full Rom, Normal Inspection - Respiratory Exam Respiratory Exam: Clear to PA & Lateral, NORMAL BREATHING PATTERN. absent: R ales, Rhonchi, Wheezes - Cardiovascular Exam Cardiovascular Exam: REGULAR RHYTHM, +S1, +S2 - GI/Abdominal Exam GI & Abdominal Exam: Normal Bowel Sounds, Soft. absent: Tenderness - Extremities Exam Extremities exam: full ROM, pedal pulses present - Neurological Exam Neurological exam: Alert, Oriented x3 - Psychiatric Exam Psychiatric exam: Normal Affect, Normal Mood - Skin Skin Exam: Dry, Normal Color, Warm Discharge Plan - Discharge Medications Prescriptions: amLODIPine [Norvasc] 5 mg PO DAILY #30 tab Aspirin [Aspirin Chewable] 81 mg PO DAILY #30 chew Carvedilol [Coreg] 12.5 mg PO BID #60 tab Furosemide [Lasix] 20 mg PO DAILY #30 tab Isosorbide Mononitrate [Ismo] 10 mg PO DAILY #30 tab Isosorbide Mononitrate [Ismo] 10 mg PO DAILY #30 tab Lisinopril [Zestril] 2.5 mg PO DAILY #30 tab MetFORMIN [glucoPHAGE] 1,000 mg PO BID #60 tab metFORMIN [glucOPHAGE] 1,000 mg PO BIDCC #60 tab Rosuvastatin Calcium 2.5 [Crestor] 5 mg PO HS #30 tab Warfarin [Coumadin] 5 mg PO 1800 #30 tab - Follow Up Plan Condition: STABLE Disposition: HOME/ ROUTINE Instructions: Heart Failure, Adult, Heart Failure, Adult (DC), Vitamin K Diet, Pulmonary Embolism (Blood Clot in the Lungs) (DC), What to Do When Your INR Is Too High , Acetaminophen, Amlodipine, Carvedilol, Furosemide, Glipizide and Metformin, Isosorbide Dinitrate, Lisinopril, Rosuvastatin, Anti-Clotting Medicines: Warfarin (Coumadin), Warfarin, Going Home on Blood Thinners , Pulmonary Embolism (DC), Pulmonary Embolism (GEN), Deep Venous Thrombosis (DC), Deep Venous Thrombosis (GEN) Additional Instructions: Patient is stable for discharge as per Dr. Arevalo. You will need to follow up with your primary care doctor, Dr. Rose at the [facility] in Floor [address] of [facility] within 7 days. Call [phone] to make an appointment. You must have your INR remeasured. Follow the recommendations of the Coumadin diet that you were instructed on and a copy provide to you in [place]. You are on medication that can cause bleeding. Be careful with falls, bruising, and going up and down the stairs. You will receive scripts for the following medications: amlodipine 5mg once daily at 8AM #30 Metformin 1000mg one tab twice a day at 8AM and 8PM #60 isosorbidde mononitrate 10mg once daily at 8PM #30 Furosemide 20 mg PO daily at 2PM #30 Carvedilol 12.5 mg PO twice a day at 8AM and 8PM #60 Simvastating 5mg daily at 8PM #30 Aspirin 81mg once daily at 8AM #30 Warfarin 5mg , 1 tab PO 1x per day 6PM #30 Coreg 12.5mg 1 tab twice a day at 8AM and 8PM #60 Lisinopril 2.5mg once a day at 2 PM #30 Take care and be well. El paciente es estable para la descarga segn el Dr. Arevalo. Usted tendr que hacer un seguimiento con [facility] doctor de [place], Dra. Rose en el [facility] en el p[address] de [facility] dentro de [address]. Llame al [phone] para concertar yulia courtney. Debe tener wooten INR remedido. Siga las recomendaciones de la dieta Coumadin que se le instruy y yulia copia le proporcionar en espaol. Usted est en medicamentos que pueden causar sangrado. Tenga cuidado con las cadas, los hematomas, y con subir y bajar las escaleras. Recibirs scripts para los siguientes medicamentos: amlodipino 5mg yulia vez al da a las 8AM #30 Metformina 1000mg yulia pestaa dos veces al da a las 8AM y 8PM #60 isosorbidde mononitrato 10mg yulia vez al da a las 8PM #30 Furosemida 20 mg PO diariamente a las 2PM #30 Carvedilol 12,5 mg PO dos veces al da a las 8AM y 8PM #60 Simvastating 5mg al da a las 8PM #30 Aspirina 81mg yulia vez al da a las 8AM #30 Warfarina 5mg, 1 Tab PO 1x por da 6PM #30 Coreg 12.5 mg 1 Tab dos veces al da a las 8AM y 8PM #60 Lisinopril 2.5 mg yulia vez al da a las 2 PM #30 Cudate.
[2018-12-17] MEDS: Enoxaparin 80 mg Syringe SC SCH (10:02)
[2018-12-17 10:05] VITALS: BP 126/76
[2018-12-17 22:10] LABS: THROMBIN CLOTTING TIME 23 sec (13-19)
== END 2018-12-17 14:41 | disposition home or self-care (01) | DRG 134 ==
LOC: C.ER 07:21 → C.9E 12:49 → C.6T 18:57 → OBSVTOIN 12-13 13:25
PROVIDERS: ADMIT Hospitalist; ATTEND Hospitalist
DX: I26.99 Other pulmonary embolism without acute cor pulmonale (principal); I11.0 Hypertensive heart disease with heart failure; I50.9 Heart failure, unspecified; I82.401 Acute embolism and thrombosis of unspecified deep veins of right lower extremity; E11.9 Type 2 diabetes mellitus without complications; E78.5 Hyperlipidemia, unspecified; K21.9 Gastro-esophageal reflux disease without esophagitis; Z79.84 Long term (current) use of oral hypoglycemic drugs